=== PATIENT | female | born 1945 | race Caucasian/White ===

== ENCOUNTER → 2024-01-12 14:51 | Outpatient (BNVA) | payer OTHER, MEDICARE, SELFPAY | PROVIDERS: PCP Nurse Practitioner Family; Visit Provider Nurse Practitioner Family | DX: I10 Essential (primary) hypertension (principal); E78.5 Hyperlipidemia, unspecified | CPT/HCPCS: 80053; 80061 ==

== ENCOUNTER 2024-01-27 14:33 | Outpatient (CLI) | payer MEDICARE, OTHER, SELFPAY ==
--- NOTE | 2024-01-27 14:45 | CT_ITS ---
WS: [id number] LDCT LUNG CANCER SCREENING HISTORY: F17.200 - Nicotine dependence, unspecified, uncomplicated TECHNIQUE: Axial imaging performed from the apices to 1 cm below the costophrenic angles. Coronal and sagittal reformats are submitted with axial MIP series. All CT scans at [facility] use at least one of these dose optimization techniques: automated exposure control; mA and/or kV adjustment per patient size (includes targeted exams where dose is matched to clinical indication); or iterativ e reconstruction. DLP: 79.70 mGy.cm DIvol: Mean CTDIvol: 1.50 (mGy) COMPARISON: None available. Diagnostic quality: Satisfactory Lungs: Linear areas of atelectasis. Moderate chronic emphysema. No pulmonary mass or nodule. Mild foc al bronchiectasis central RIGHT lung. Bronchiectasis extends into the RIGHT lower and RIGHT middle lo bes. No endobronchial lesions. Heart: Normal size heart with no pericardial effusion.. Other findings: Mild atherosclerosis aorta. Normal size pulmonary artery. Small hiatal hernia. CT/CT lung screening [id number] IMPRESSION: LUNG-RADS: 1-Negative FOLLOW UP: 12 Month: Continue annual screening with LDCT OTHER FINDINGS (S MODIFIER): None.
== END 2024-01-27 14:34 | disposition home or self-care (01) ==
LOC: RAD 14:36
PROVIDERS: PCP Nurse Practitioner Family; Visit Provider Nurse Practitioner Family
DX: Z12.2 Encounter for screening for malignant neoplasm of respiratory organs (principal); F17.200 Nicotine dependence, unspecified, uncomplicated; J98.11 Atelectasis; J43.9 Emphysema, unspecified; J47.9 Bronchiectasis, uncomplicated
CPT/HCPCS: 71271

== ENCOUNTER 2024-02-18 12:08 | Outpatient (CLI) | payer MEDICARE, OTHER, SELFPAY ==
--- NOTE | 2024-02-18 12:15 | US_ITS ---
WS: [id number] ULTRASOUND SOFT TISSUES RIGHT lateral neck. HISTORY: R22.1 - Localized swelling, mass and lump, neck COMPARISON: None available. TECHNIQUE: 2-D and color Doppler imaging is submitted. Ultrasound is directed over the RIGHT lateral neck by the patient to the area of interest. There is a complex cystic mass without increased vascularity. This is a lobulated cystic mass with a few low-le tawny echoes. The entire complex measures 1.3 x 1.6 x 2.1 cm. US/US soft tissue head neck [id number] IMPRESSION: 1. Very nonspecific complex cystic mass along the RIGHT neck. This needs to be further evaluated. Recommend neck CT with IV contrast. This may be an abnormal lymph node or thyroglossal duct cyst or thrombosed vessel.
== END 2024-02-18 12:09 | disposition home or self-care (01) ==
LOC: RAD 12:09
PROVIDERS: PCP Nurse Practitioner Family; Visit Provider Nurse Practitioner Family
DX: R22.1 Localized swelling, mass and lump, neck (principal)
CPT/HCPCS: 76536

== ENCOUNTER 2024-02-24 15:41 | Outpatient (CLI) | payer MEDICARE, OTHER, SELFPAY ==
[2024-02-24] MEDS: iohexol 350 mg/mL 500 mL Btl (per mL) IV (16:20)
--- NOTE | 2024-02-24 16:30 | CTR_ITS ---
PROCEDURE INFORMATION: Exam: CT Neck With Contrast Exam date and time: 02/24/2024 4:05 PM Age: 78 years old Clinical indication: Mass, lump, or swelling in neck; Right; Patient HX: RT side of neck lump/bb placed x 3-4 weeks; Additional info: R22.1 - localized swelling, mass and lump, neck TECHNIQUE: Imaging protocol: Computed tomography of the neck with contrast. Radiation optimization: All CT scans at this facility use at least one of these dose optimization techniques: automated exposure control; mA and/or kV adjustment per patient size (includes targeted exams where dose is matched to clinical indication); or iterative reconstruction. Contrast material: OMNIPAQUE 350; Contrast volume: 100 ml; Contrast route: INTRAVENOUS (IV); COMPARISON: US soft tissue head neck [id number] 02/18/2024 12:18 PM RADIATION DOSE METRICS: Total DLP (mGy-cm): 170.95 FINDINGS: Salivary glands: Overall salivary glands are atrophic with fatty replacement. No salivary gland mass. Pharynx: Unremarkable. No significant tonsillar enlargement. Prevertebral and retropharyngeal spaces: Unremarkable. Larynx: Unremarkable. Epiglottis is normal. Thyroid: Normal. No enlarged or calcified nodules. Trachea: Visualized trachea is unremarkable. Lungs: Unremarkable as visualized. Lymph nodes: Rounded node with central low density is seen in the right posterior triangle at the level of the hyoid (Level IIB) which measures 2.4 x 1.6 x 1.3 cm. Several smaller nodes are seen just superior and inferior to this node. There is also a mildly enlarged right internal jugular chain node (Level IIA), measuring up to 1.2 cm. Bones/joints: Mild diffuse cervical spondylosis. Soft tissues: Unremarkable. No significant soft tissue swelling. Other findings: Emphysema. . CT/CT neck w con* [id number] IMPRESSION: 1. Right-sided lymphadenopathy most prominently Level IIB. The largest node has a central hypodensity. Consider reactive versus neoplastic lymphadenopathy. Image guided biopsy would be straight forward in this patient. No primary lesion seen on this exam. 2. Salivary gland atrophy. This may represent a late stage of Sjogren syndrome or other autoimmune disorder.
== END 2024-02-24 15:42 | disposition home or self-care (01) ==
LOC: RAD 15:42
PROVIDERS: PCP Nurse Practitioner Family; Visit Provider Nurse Practitioner Family
DX: R59.0 Localized enlarged lymph nodes (principal); K11.0 Atrophy of salivary gland
CPT/HCPCS: 70491

== ENCOUNTER 2024-05-02 13:35 | Oncology outpatient (recurring) (ONCR) | payer MEDICARE, OTHER, SELFPAY ==
[2024-05-02 15:44] LABS: Basophils % 0.6 %; Eosinophils # 0.1 10^3/uL (0.0-0.8); Eosinophils % 2.1 %; Lymphocytes # 1.3 10^3/uL (0.8-4.8); Lymphocytes % 25.3 %; Mean Corpuscular HGB Conc 33.1 g/dL (30-55); Mean Corpuscular Hemoglobin 31.7 pg (27-33); Mean Corpuscular Volume 95.9 fl (85-98); Mean Platelet Volume 10.7 fL (7.4-10.4); Monocytes # 0.4 10^3/uL (0.2-0.9); Neutrophils # 3.36 10^3/uL (1.8-7.7); Neutrophils % 63.8 %; Nucleated Red Blood Cells % 0 %; Platelet Count 243 10^3/cmm (157-399); Red Blood Count 4.38 10^6/uL (3.85-5.65); Red Cell Distribution Width 12.9 % (12.1-15.1); White Blood Count 5.26 10^3/uL (3.29-11.43)
[2024-05-02 15:51] LABS: Alanine Aminotransferase 16 U/L (0-33); Alkaline Phosphatase 136 U/L (35-105); Anion Gap 13.8 (5-19); Aspartate Amino Transferase 22 U/L (0-32); Blood Urea Nitrogen 13 mg/dL (8-23); Calcium 9.2 mg/dL (8.5-10.5); Carbon Dioxide 29 mmol/L (22-29); Chloride 96 mmol/L (98-107); Creatinine Clr Calc Pharmacy 64.9615; Globulin 3.5 g/dL (1.3-4.6); Glucose 90 mg/dL (65-115); Lactate Dehydrogenase 196 U/L (135-214); Osmolality Calculated 280 mOsm/kg (285-295); Potassium 3.8 mmol/L (3.5-5.1); Sodium 135 mmol/L (136-145); Total Bilirubin 0.7 mg/dL (0.15-1.2); Total Protein 7.5 g/dL (6.6-8.7)
[2024-05-02 16:20] LABS: Hepatitis A Antibody IgM Non-Reactive (Nonreactive); Hepatitis B Core AB, Total Non-Reactive (Nonreactive); Hepatitis B Surface AB 12.4 (11.5-1000); Hepatitis B Surface Antigen Non-Reactive (Nonreactive); Hepatitis C Virus Antibody Non-Reactive (Nonreactive)
[2024-05-03 11:40] LABS: Hepatitis A Antibody Total REACTIVE (NON-REACTIVE)
[2024-05-03 15:19] LABS: Hepatitis B Virus DNA NOT DETECTED (NOT DETECTED); Hepatitis B Virus DNA PCR NOT DETECTED Log IU/mL (NOT DETECTED)
== END 2024-05-27 23:59 | disposition home or self-care (01) ==
PROVIDERS: PCP Nurse Practitioner Family; Visit Provider Internal Medicine Medical Oncology
DX: C83.31 Diffuse large B-cell lymphoma, lymph nodes of head, face, and neck (principal); Z87.891 Personal history of nicotine dependence
CPT/HCPCS: 36415; 80053; 83615; 85025; 86705; 86706; 86708; 86709; 86803; 87340; 87517; 99205

== ENCOUNTER → 2024-05-09 15:29 | Outpatient (BNVA) | payer MEDICARE, OTHER, SELFPAY | PROVIDERS: PCP Nurse Practitioner Family; Visit Provider Surgery | DX: C83.30 Diffuse large B-cell lymphoma, unspecified site (principal) | CPT/HCPCS: 99204 ==

== ENCOUNTER 2024-05-17 06:34 | Day surgery (SDC) | payer MEDICARE, OTHER, SELFPAY ==
[2024-05-17] VITALS (7 sets, daily range): BP systolic 99–148; BP diastolic 50–82; PULSE 62–70; RESP 12–18; TEMP 36.1–36.4; O2SAT 93–98; BMI 29.0
--- NOTE | 2024-05-17 06:48 | SC_ITS ---
WS: [id number] Exam: C-arm FL for CVA [id number] Date/Time of Exam: 05/17/2024 6:48 AM Reason For Exam: Mediport placement Single AP C arm image of the upper LEFT chest is submitted. A LEFT subclavian port has been placed and appears to end in the lower one third of the SVC. No other significant finding.
--- NOTE | 2024-05-17 06:48 | XR_ITS ---
WS: [email or web address] Exam: XR chest 1V portable [id number] Date/Time of Exam: 05/17/2024 9:05 AM Reason For Exam: Postop Mediport placement No priors. LEFT subclavian MediPort has been placed and ends in the lower one third of the SVC in good position. The lungs are fully inflated. No infiltrates or pleural effusions. Normal cardiomediastinal silhouette. Normal bony elements. XR/XR chest 1V portable [id number] IMPRESSION: 1. LEFT subclavian port ending in the lower one third of the SVC. No acute card iopulmonary finding.
--- NOTE | 2024-05-17 07:09 | W.PM.OPSUD ---
Surgery/Procedure H&P Update DATE OF PROCEDURE: May 17, 2024 DATE H&P PERFORMED: 05/09/24 H&P UPDATE INFORMATION: I have reviewed H&P completed within last 30 days, I have examined patient prior to procedure and No changes to prior documentation PLANNED PROCEDURE: Operation Date: 05/17/24 08:30 Proposed Procedures p Portacath Placement 25170, C83.30(Not Applicable) - Feliciano Hoffman DO
[2024-05-17] MEDS: sodium chloride 0.9% 1,000 ML 30 ML IV (07:15)
--- NOTE | 2024-05-17 07:46 | ANES.PREANE2 ---
Pre-Anesthetic Assessment Height/Weight: Height 5 ft 6 in Weight 180 lb Temp Pulse Resp BP Pulse Ox O2 Del Method 97.6 F 62 18 148/82 97 Room Air 05/17/24 07:42 05/17/24 07:42 05/17/24 07:42 05/17/24 07:42 05/17/24 07:42 05/17/24 07:42 Preop Diagnosis: B-cell lymphoma Operation Date: 05/17/24 08:30 Proposed Procedures p Portacath Placement 41352, C83.30(Not Applicable) - Feliciano Hoffman, DO Was Beta Laz taken within 24 hours: N/A Was Clonidine taken within 24 hours: N/A Last intake: Intake Last Liquid Date 05/16/24 Last Liquid Time 22:00 Last Solid Date 05/16/24 Last Solid Time 22:00 Social No alcohol and No tobacco Quit smoking over 10 years ago Exam alert, oriented x 3, clear to auscultation bilaterally and regular rate & rhythm Airway Submandibular: within normal limits Cervical ROM: within normal limits Mallampati: Class III Dentition: full Anesthetic Plan ASA status: 3 Anesthesia: MAC Other: No prior issues with anesthesia NPO since yesterday evening History of hypertension on hydrochlorothiazide Patient has B-cell lymphoma, enlarged lymph nodes on right side of neck. These do not hinder swallowing or breathing Labs reviewed acceptable for procedure Patient is able to perform ADLs Plan for MAC anesthetic Medications/Allergies Home Medications ?Medication ?Instructions ?Recorded ?Confirmed ?Last Taken ?Type amitriptyline 25 mg tablet 25 mg PO DAILY #90 tabs 01/12/24 05/16/24 05/16/24 Rx atorvastatin 20 mg tablet 20 mg PO DAILY #90 tabs 01/12/24 05/16/24 05/16/24 Rx bisoprolol fumarate 10 mg tablet 10 mg PO DAILY #90 tabs 01/12/24 05/16/24 05/16/24 Rx hydrochlorothiazide 25 mg tablet 25 mg PO DAILY #90 tabs 01/12/24 05/16/24 05/16/24 Rx Allergies Allergy/AdvReac Type Severity Reaction Status Date / Time azithromycin Allergy Unknown Verified 05/09/24 15:37 Opioids - Morphine Analogues Allergy Unknown Verified 05/09/24 15:37 Current Medications Generic Name Dose Route Start Last Admin Trade Name Freq PRN Reason Stop Dose Admin Sodium Chloride 1,000 mls @ 30 mls/hr 05/17/24 07:15 05/17/24 07:15 Sodium Chloride 0.9% IV 05/18/24 07:14 30 mls/hr .Q24H NEISHA Administration PFSH Anesthesia Medical History Insomnia Hypertension Hyperlipidemia Surgical History History of appendectomy History of tubal ligation Family History Mother , at age 87 Hypertension Congestive heart failure (CHF) Father , at age 75 Hypertension Congestive heart failure (CHF) Social History Smoking and tobacco/nicotine status: former use of tobacco/nicotine (stopped at age 64) Quit status (tobacco/nicotine): has quit using Year quit tobacco: 13 years ago Alcohol intake: never Substance/Drug Use: never Adopted: No Caregiver/support person: No Lives independently: No Household members: spouse Marital status: service: No Current occupational status: retired Sexually active: Yes Do you think of yourself as: Straight/Heterosexual Current gender identity: Female Data Anesthesia Cardiac Studies: No Data to Display
[2024-05-17] MEDS: ceFAZolin 2,000 mg SDV 2000 MG IVP (08:25)
[2024-05-17] MEDS: lidocaine-epi 2% PF 1:200,000 20 mL SDV 10 ML XX (08:43)
[2024-05-17] MEDS: heparin, porcine 1,000 unit/mL INJ 10 mL 10000 UNIT INJECTION (08:44)
--- NOTE | 2024-05-17 09:10 | P.OP_ITS ---
Operative Report Date of procedure: May 17, 2024 Surgeon: Feliciano Hoffman DO Brief History: This a very pleasant 79-year-old female who was diagnosed with diffuse large B- cell lymphoma. Oncology requested Mediport placement for chemotherapy access. The risks and benefits were explained and documented. Procedure: Pre-op diagnosis: Post-op diagnosis: same Procedure done: Mediport placement Intraoperative interpretation of fluoroscopy Implants: PowerPort Specimens removed/disposition: None Surgeon: Feliciano Hoffman DO Anesthesia: MAC and Local Estimated blood loss (mL): 5 Complications: None apparent Procedure: The patient was taken to the operating room and placed supine on the operating room table. All bony prominences were padded. She was given IV sedation and monitored throughout the case by the anesthesia personnel. SCDs were placed and turned on. The arms were tucked to the side. Patient received Ancef 2 g preoperatively IV. The bilateral chest wall was prepped and draped in usual sterile fashion using chlorhexidine base prep. Sterile drapes were applied. We did procedure pause prior to beginning. An 18 gauge needle was placed in the left subclavian vein. Dark, nonpulsatile blood was aspirated. A guidewire was placed through the needle centrally toward the atrial/vena caval junction. Fluoroscopy visualized good placement. The needle was removed and the guidewire was clipped to the drape with a hemostat. Further local anesthetic was infiltrated in the soft tissues of the left chest wall and a #15 blade was used to make a horizontal skin incision. A subcutaneous Mediport pocket was created using Bovie cautery, dissecting down through the skin and subcutaneous tissues. Meticulous hemostasis was achieved. The Mediport was sutured in position using 3-0 vicryl suture x2 stitches. A #15 blade was used to make a small skin loyda around the guidewire insertion area. The Mediport tubing was tunneled through the subcutaneous tissues up to the needle insertion location. A dilator with a peel-away sheath was placed over the guidewire and placed centrally. After measuring the Mediport tubing was cut to length so that the tip would end at the atrial/vena caval junction. The inner cannula and the guidewire were removed, leaving the dilator sheath in place. The Mediport was flushed. The tip of the catheter was inserted through the peel-away sheath and the peel-away sheath removed in the standard fashion. The Mediport was accessed with a straight Noyola needle and dark, nonpulsatile blood was aspirated and flushed using heparinized saline to hep-lock the Mediport. Final fluoroscopy visualization showed no kink in the catheter and the tip of the Mediport tubing near the atrial/vena caval junction. There is no obvious pneumothorax. Both skin incisions were thoroughly irrigated and suctioned dry. Meticulous hemostasis noted. The dermis was approximated with 3-0 Vicryl in an interrupted fashion. Skin was closed with Dermabond. Patient was awakened from anesthesia and transferred via her cart to the recovery room in stable condition. All needle, sponge, and instrument counts were correct per the operating personnel x2 counts.
--- NOTE | 2024-05-17 09:55 | ANE.PACU2 ---
Inpatient post-anesthesia follow up: Airway intact: Yes Vital signs: Temperature 97.0 F Pulse Rate 70 Respiratory Rate 18 Blood Pressure 117/80 Pulse Oximetry 93 Oxygen Delivery Me thod Room Air Oxygen Flow Rate Fraction of Inspir ed Oxygen Hydration adequate: Yes Nausea and vomiting: No Pain level: 1 Mental status: Baseline
== END 2024-05-17 09:55 | disposition home or self-care (01) ==
PROVIDERS: PCP Nurse Practitioner Family; Visit Provider Surgery
DX: C83.30 Diffuse large B-cell lymphoma, unspecified site (principal); I10 Essential (primary) hypertension; E78.5 Hyperlipidemia, unspecified; Z79.899 Other long term (current) drug therapy; Z87.891 Personal history of nicotine dependence
CPT/HCPCS: 71045; 77001; C1788; J0690; J1644; J2704; J3010; J7030

== ENCOUNTER 2024-05-25 08:10 | Outpatient (CLI) | payer MEDICARE, OTHER, SELFPAY ==
--- NOTE | 2024-05-25 08:30 | USCV_ITS ---
Yael Lias Age: 79 Gender: F : 1945 Exam Date: 05/25/2024 08:18 Ordering Phys: Jim Kiran MD Technologist: Exam Location: [facility] [place] Indication: Lymphoma BP: / HR: Rhythm: Sinus Technical Quality: Adequate MEASUREMENTS (Male / Female) Normal Values FINDINGS Left Ventricle Normal left ventricular size, systolic function and wall thickness, with no regional wall motion abnormalities. Left ventricular ejection fraction is estimated at 60 %. Grade I/IV diastolic dysfunction (abnormal relaxation filling pattern), normal to mildly elevated filling pressures. Right Ventricle The right ventricle is normal in size and function. Right Atrium The right atrium is normal in size. Left Atrium The left atrium is normal in size. Mitral Valve Mildly thickened mitral valve. No mitral valve stenosis. Mild- moderate mitral valve regurgitation. Aortic Valve Mild aortic valve calcification. No aortic valve stenosis. Trace aortic valve regurgitation. Tricuspid Valve Structurally normal tricuspid valve without significant stenosis or regurgitation. Pulmonary artery systolic pressure is normal. Pulmonic Valve Structurally normal pulmonic valve without significant stenosis. There is no pulmonic regurgitation. Pericardium Normal pericardium without effusion. Aorta Normal ascending aorta dimension. IVC The inferior vena cava appears normal. CONCLUSIONS Normal left ventricular size, systolic function and wall thickness, with no regional wall motion abnormalities. Left ventricular ejection fraction is estimated at 60 %. Grade I/IV diastolic dysfunction (abnormal relaxation filling pattern), normal to mildly elevated filling pressures. Mildly thickened mitral valve. No mitral valve stenosis. Mild- moderate mitral valve regurgitation. There is no pericardial effusion. Right atrial pressure is around 5 mm of mercury. Emily Mistry MD (Electronically Signed) Final Date: 14 June 2024 09:13 S
== END 2024-05-25 08:11 | disposition home or self-care (01) ==
PROVIDERS: PCP Nurse Practitioner Family; Visit Provider Internal Medicine Medical Oncology
DX: C83.30 Diffuse large B-cell lymphoma, unspecified site (principal); R93.1 Abnormal findings on diagnostic imaging of heart and coronary circulation; I34.0 Nonrheumatic mitral (valve) insufficiency; I35.8 Other nonrheumatic aortic valve disorders
CPT/HCPCS: 93306

== ENCOUNTER → 2024-05-30 09:38 | Outpatient (BNVA) | payer MEDICARE, OTHER, SELFPAY | PROVIDERS: PCP Nurse Practitioner Family; Visit Provider Surgery | DX: C83.30 Diffuse large B-cell lymphoma, unspecified site (principal); Z95.828 Presence of other vascular implants and grafts | CPT/HCPCS: 99214 ==

== ENCOUNTER 2024-06-27 07:30 | Oncology outpatient (recurring) (ONCR) | payer MEDICARE, OTHER, SELFPAY ==
[2024-06-27] VITALS (14 sets, daily range): BP systolic 94–125; BP diastolic 49–79; PULSE 61–78; RESP 16–18; TEMP 35.8–36.6; O2SAT 89–99
[2024-06-27 07:37] LABS: Basophils % 0.5 %; Eosinophils # 0.2 10^3/uL (0.0-0.8); Eosinophils % 2.5 %; Hematocrit 39.8 % (36-47); Lymphocytes # 1.3 10^3/uL (0.8-4.8); Mean Corpuscular HGB Conc 33.4 g/dL (30-55); Mean Corpuscular Hemoglobin 31.8 pg (27-33); Mean Corpuscular Volume 95.2 fl (85-98); Mean Platelet Volume 10.4 fL (7.4-10.4); Monocytes # 0.6 10^3/uL (0.2-0.9); Monocytes % 10.7 %; Neutrophils # 3.88 10^3/uL (1.8-7.7); Neutrophils % 65.1 %; Nucleated Red Blood Cells % 0 %; Platelet Count 229 10^3/cmm (157-399); Red Blood Count 4.18 10^6/uL (3.85-5.65); Red Cell Distribution Width 12.9 % (12.1-15.1); White Blood Count 5.96 10^3/uL (3.29-11.43)
[2024-06-27 07:59] LABS: Alanine Aminotransferase 15 U/L (0-33); Alkaline Phosphatase 131 U/L (35-105); Anion Gap 13.5 (5-19); Aspartate Amino Transferase 17 U/L (0-32); Blood Urea Nitrogen 12 mg/dL (8-23); Calcium 9.4 mg/dL (8.5-10.5); Carbon Dioxide 28 mmol/L (22-29); Chloride 102 mmol/L (98-107); Globulin 3.3 g/dL (1.3-4.6); Glucose 102 mg/dL (65-115); Lactate Dehydrogenase 188 U/L (135-214); Osmolality Calculated 288 mOsm/kg (285-295); Potassium 4.5 mmol/L (3.5-5.1); Sodium 139 mmol/L (136-145); Total Bilirubin 0.7 mg/dL (0.15-1.2); Total Protein 7.3 g/dL (6.6-8.7)
[2024-06-27] MEDS: sodium chloride 0.9% 250 ML 75 ML IV (10:06)
[2024-06-27] MEDS: palonosetron 0.25 mg/5 mL SDV IVP (10:07)
[2024-06-27] MEDS: OLANZapine 5 mg TABLET PO (10:07)
[2024-06-27] MEDS: diphenhydrAMINE 50 mg/mL SDV 1mL 25 MG IVP (10:09)
[2024-06-27] MEDS: famotidine 20 mg/2 mL INJ IVP (10:11)
[2024-06-27] MEDS: aprepitant 130 mg/18 ml SDV IVP (10:13)
[2024-06-27] MEDS: dexamethasone 4 mg/mL INJ 12 MG IVP (10:19)
[2024-06-27] MEDS: methylPREDNISolone sod succ 125 mg/2 mL INJ 60 MG IVP (11:05)
[2024-06-27] MEDS: ipratropium-albuterol 3 mL Neb INHALATION (11:05)
[2024-06-27] MEDS: sodium chloride 0.9% 1,000 ML 500 ML IV (11:21)
[2024-06-27] MEDS: DOXOrubicin 2 mg/ml MDV 94 MG IVP (18:18)
[2024-06-27] MEDS: pegfilgrastim 6 mg/0.6 mL Kit (onpro) SUBCUT (18:49)
== END 2024-06-27 23:59 | disposition home or self-care (01) ==
PROVIDERS: Nurse Practitioner Family; PCP Nurse Practitioner Family; Visit Provider Internal Medicine Medical Oncology
DX: Z53.9 Procedure and treatment not carried out, unspecified reason; Z51.11 Encounter for antineoplastic chemotherapy; C83.31 Diffuse large B-cell lymphoma, lymph nodes of head, face, and neck; Z79.899 Other long term (current) drug therapy; T45.1X5A Adverse effect of antineoplastic and immunosuppressive drugs, initial encounter; Z79.52 Long term (current) use of systemic steroids
CPT/HCPCS: 80053; 83615; 85025; 96360; 96361; 96366; 96367; 96372; 96375; 96401; 96409; 96413; 96415; 96417; 99214; 99215; J0185; J1100; J1200; J2469; J2506; J2919; J3490; J7030; J7040; J7050; J9000; J9075; J9309; J9999; Q5119

== ENCOUNTER 2024-06-29 09:16 | Emergency (ER) | payer MEDICARE, OTHER, SELFPAY ==
[2024-06-29 09:26] VITALS: BP 101/55; PULSE 60; RESP 20; TEMP 36.3; O2SAT 91
--- NOTE | 2024-06-29 09:47 | XR_ITS ---
WS: [id number] XR chest 1V portable [id number] REASON FOR EXAM: Shortness of breath FINDINGS: Chemotherapy infusion port over the left chest which is accessed. Trans left subclavian infusion catheter with the tip in the SVC. There is moderate tortuosity and ectasia of the thoracic aorta. The heart size is at the upper limits of normal. Compared to the previous examination of 05/17/2024, there are interstitial reticular and linear opacities in the right lower lung with accentuation of the minor fissure. Moderate degenerative spondylosis in the mid and lower thoracic spine. XR/XR chest 1V portable [id number] IMPRESSION: Abnormal chest. The findings suggest early congestive heart failure. Less likely pneumonitis.
--- NOTE | 2024-06-29 09:47 | ECG_ITS ---
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 Measurements Intervals Ferguson Rate: 64 P: 76 GA: 176 QRS: 88 QRSD: 94 T: 91 QT: 417 QTc: 432 Interpretive Statements SINUS RHYTHM LOW QRS VOLTAGE IN PRECORDIAL LEADS [QRS DEFLECTION < 1.0 mV IN CHEST LEADS] No previous ECG available for comparison Electronically Signed On 07-02-2024 18:24:16 CDT by Chidi Marsh M.D. [email or web address]
[2024-06-29 10:06] LABS: Hematocrit 34.1 % (36-47); Mean Corpuscular HGB Conc 32.8 g/dL (30-55); Mean Corpuscular Hemoglobin 31.4 pg (27-33); Mean Corpuscular Volume 95.5 fl (85-98); Mean Platelet Volume 10.7 fL (7.4-10.4); Platelet Count 218 10^3/cmm (157-399); Red Blood Count 3.57 10^6/uL (3.85-5.65); Red Cell Distribution Width 13.1 % (12.1-15.1); White Blood Count 29.88 10^3/uL (3.29-11.43)
--- NOTE | 2024-06-29 10:07 | CT_ITS ---
WS: [id number] CT CHEST ANGIOGRAPHY WITH REFORMATS HISTORY: sob TECHNIQUE: Contiguous axial images are obtained through the chest during arterial injection of intravenous contrast. Images are reconstructed to evaluate the pulmonary arteries. MIP imaging also reviewed. All CT scans at [facility] use at least one of these dose optimization techniques: automated exposure control; mA and/or kV adjustment per patient size (includes targeted exams where dose is matched to clinical indication); or iterative reconstruction. CONTRAST: Omnipaque 350; 100 mL IV. DLP: 339.56 mGy.cm COMPARISON: Lung screening 01/27/2024 Good opacification of the pulmonary arteries. No filling defects or pulmonary embolism is identified. Pulmonary artery size is normal. No RIGHT heart strain. Very slight LEFT heart enlargement. Mild ectasia and atherosclerosis thoracic aorta. No mediastinal or hilar adenopathy. No pericardial or pleural effusions. Advanced centrilobular emphysema. New heterogeneous attenuation noted throughout both lungs. Areas of groundglass attenuation and lucency, mosaic attenuation. Bilateral lower lobe atelectasis. Slightly greater atelectasis at the LEFT lung base. LEFT subclavian Mediport. Mild increase in thoracic kyphosis. No destructive bone lesions are identified. CT/CT angio chest PE protcl [id number] IMPRESSION: 1. No pulmonary embolism. 2. New mosaic attenuation throughout both lungs since 01/27/2024. Differential includes hypersensitivity pneumonitis, heart failure, asthma and viral pneumon ia. Pulmonary embolism may produce a similar pattern. 3. No pulmonary mass. 4. No pleural effusion.
--- NOTE | 2024-06-29 10:17 | W.ED.SOB ---
HPI - SOB/Dyspnea General: Chief Complaint: Shortness of Breath/Dyspnea Stated Complaint: SOB, swelling in legs, fulid build up Time Seen by Provider: 06/29/24 09:54 Source: patient Mode of arrival: ambulatory Limitations: no limitations History of Present Illness: HPI Narrative: 79-year-old female who has a history of lymphoma just started her first chemo treatment on Thursday she states that since then she is felt weak and fatigued. She states she has had some increasing shortness of breath she also had some leg swelling. She denies any fever denies any chest pain. Denies any worse improving factors. Associated symptoms: Deny abdominal pain, chest pain, fever(s), nausea or vomiting Related Data Home Medications ?Medication ?Instructions ?Recorded ?Confirmed ascorbic acid (vitamin C) 1,000 mg 1 g PO DAILY 06/29/24 06/29/24 tablet (Vitamin C) cholecalciferol (vitamin D3) 125 125 mcg PO DAILY 06/29/24 06/29/24 mcg (5,000 unit) tablet (Vitamin D3) flaxseed oil 1,000 mg capsule 1,000 mg PO DAILY 06/29/24 06/29/24 magnesium 250 mg tablet 250 mg PO DAILY 06/29/24 06/29/24 polyethylene glycol 3350 17 4 g PO DAILY constipation 06/29/24 06/29/24 gram/dose oral powder (Miralax) vitamin B complex 0.5 tab PO DAILY 06/29/24 06/29/24 Previous Rx's ?Medication ?Instructions ?Recorded amitriptyline 25 mg tablet 25 mg PO DAILY #90 tabs 01/12/24 atorvastatin 20 mg tablet 20 mg PO DAILY #90 tabs 01/12/24 bisoprolol fumarate 10 mg tablet 10 mg PO DAILY #90 tabs 01/12/24 hydrochlorothiazide 25 mg tablet 25 mg PO DAILY #90 tabs 01/12/24 docusate sodium 100 mg capsule 100 mg PO BID #14 caps 05/17/24 (Colace) ondansetron 8 mg disintegrating 8 mg PO Q8H PRN nausea and 05/17/24 tablet vomiting #10 tabs allopurinol 300 mg tablet 300 mg PO DAILY #30 tabs 06/15/24 fluconazole 100 mg tablet 100 mg PO DAILY fungal infection 06/15/24 prevention #90 tabs lorazepam 1 mg tablet 0.5 - 1 mg (0.5 - 1 x 1 mg) PO Q6H 06/15/24 PRN severe nausea #30 tabs ondansetron HCl 4 mg tablet 4 mg PO Q6H PRN nausea and 06/15/24 vomiting #30 tabs prochlorperazine maleate 10 mg 10 mg PO Q4H PRN mild nausea #30 06/15/24 tablet (Compazine) tabs sulfamethoxazole 800 1 tab PO MOWEFR infection 06/15/24 mg-trimethoprim 160 mg tablet prevention #24 tabs (Bactrim DS) valacyclovir 500 mg tablet 500 mg PO BID #60 tabs 06/15/24 lidocaine-prilocaine 2.5 %-2.5 % 1 applic topical .COMPLEX #30 grams 06/16/24 topical cream doxycycline hyclate 100 mg tablet 100 mg PO BID 7 days #14 tabs 06/29/24 furosemide 40 mg tablet (Lasix) 40 mg PO DAILY #30 tabs 06/29/24 Allergies Allergy/AdvReac Type Severity Reaction Status Date / Time acetaminophen Allergy Unknown Verified 06/29/24 09:31 azithromycin Allergy Unknown Verified 06/27/24 07:55 Opioids - Morphine Analogues Allergy Unknown Verified 06/27/24 07:55 Review of Systems Const: Denies: fever(s), chills, body aches or change in appetite ENMT: Denies: throat pain or dental pain Card: Denies: chest pain Resp: Reports: dyspnea GI: Denies: abdominal pain, nausea, vomiting or diarrhea Musc: Reports: extremity swelling; Denies: neck pain or back pain Skin/Breast: Denies: rash Neuro: Denies: headache(s) PFSH ED PFSH: Medical History Insomnia Hypertension Hyperlipidemia Surgical History History of appendectomy History of tubal ligation Family History Mother , at age 87 Hypertension Congestive heart failure (CHF) Father , at age 75 Hypertension Congestive heart failure (CHF) Social History Smoking and tobacco/nicotine status: former use of tobacco/nicotine (stopped at age 64) Quit status (tobacco/nicotine): has quit using Year quit tobacco: 13 years ago Alcohol intake: never Substance/Drug Use: never Adopted: No Caregiver/support person: No Lives independently: No Household members: spouse Marital status: service: No Current occupational status: retired Sexually active: Yes Do you think of yourself as: Straight/Heterosexual Current gender identity: Female Physical Exam Const: COMMON NORMALS: patient oriented x3 HENMT: COMMON NORMALS: normocephalic and atraumatic HEAD & SCALP: normocephalic and atraumatic Eye: COMMON NORMALS: Equal, round and reactive pupils present and EOMs intact bilaterally PUPIL: Yes Equal, round and reactive pupils present Neck/C-Spine: COMMON NORMALS: full ROM and supple Chest: COMMONS NORMALS: normal inspection of the chest Resp: COMMON NORMALS: normal respiratory effort, No retractions, No use of accessory muscles and clear to auscultation bilaterally AUSCULTATION: clear to auscultation bilaterally Cardio: COMMON NORMALS: regular rate, regular rhythm and No murmurs present (Cardio) RATE: regular rate RHYTHM: regular rhythm GI: COMMON NORMALS: Normal to inspection, nondistended, normoactive bowel sounds present, Soft to palpation, non-tender and no masses PALPATION: Yes Soft to palpation Extremity: COMMON NORMALS: full ROM NARRATIVE EXTREMITY EXAM: 2+ edema to lower extremities Neuro: COMMON NORMALS: patient oriented x3, moves all extremities and no focal motor deficits Psych: COMMON NORMALS: mental status grossly normal, Normal thought process present and cooperative THOUGHT PROCESS: Normal thought process present Skin: COMMON NORMALS: no rashes or lesions noted and no wounds GENERAL SKIN EXAM: no rashes or lesions noted Course Vital Signs: Vital signs: Vital Signs Temperature 97.4 F L 06/29/24 09:26 Pulse Rate 60 06/29/24 09:26 Respiratory Rate 20 H 06/29/24 09:26 Blood Pressure 101/55 06/29/24 09:26 Pulse Oximetry 91 06/29/24 09:26 Oxygen Delivery Me thod Room Air 06/29/24 09:26 MDM - SOB/Dyspnea Medical Decision Making Patient presents with lower extremity muscle some dyspnea does have an elevated BNP little bit of fluid overload x-ray showed pneumonitis versus pulmonary edema will start on antibiotics she has not had a fever will start on Lasix as well I did offer her admission she states she wants to go home she is follow-up with her oncologist return if worsening she understands agrees to plan. Medical Records I reviewed the patient's medical records. Lab Data I reviewed the patient's lab results. 06/29/24 09:55 06/29/24 09:55 Labs/Radiology: Radiology Impressions Chest X-Ray 06/29/24 09:47 IMPRESSION: Abnormal chest. The findings suggest early congestive heart failure. Less likely pneumonitis. Chest CTA 06/29/24 10:07 IMPRESSION: 1. No pulmonary embolism. 2. New mosaic attenuation throughout both lungs since 01/27/2024. Differential includes hypersensitivity pneumonitis, heart failure, asthma and viral pneumonia. Pulmonary embolism may produce a similar pattern. 3. No pulmonary mass. 4. No pleural effusion. Laboratory Results WBC 29.88 10^3/uL (3.29-11.43) H 06/29/24 09:55 RBC 3.57 10^6/uL (3.85-5.65) L 06/29/24 09:55 Hgb 11.20 g/dL (11.27-16.99) L 06/29/24 09:55 Hct 34.1 % (36-47) L 06/29/24 09:55 MCV 95.5 fl (85-98) 06/29/24 09:55 MCH 31.4 pg (27-33) 06/29/24 09:55 MCHC 32.8 g/dL (30-55) 06/29/24 09:55 RDW 13.1 % (12.1-15.1) 06/29/24 09:55 Plt Count 218 10^3/cmm (157-399) 06/29/24 09:55 MPV 10.7 fL (7.4-10.4) H 06/29/24 09:55 Lymph % (Auto) Not Reportable 06/29/24 09:55 [place] % (Auto) Not Reportable 06/29/24 09:55 Lymph # (Auto) Not Reportable 06/29/24 09:55 [place] # (Auto) Not Reportable 06/29/24 09:55 Total Counted 100 (0-100) 06/29/24 09:55 Atypical Lymphs % 0.0 % (0-5) 06/29/24 09:55 Absolute Neutrophils 27.8 10^3/cmm (1.4-6.5) H 06/29/24 09:55 Segmented Neutrophils 80 % 06/29/24 09:55 Band Neutrophils 13.0 % 06/29/24 09:55 Absolute Lymphocytes 0.9 10^3/cmm (1.2-3.4) L 06/29/24 09:55 Lymphocytes (Manual) 3 % 06/29/24 09:55 Monocytes (Manual) 2.0 % 06/29/24 09:55 Absolute Monocytes 0.6 10^3/cmm (0.1-0.6) 06/29/24 09:55 Eosinophils (Manual) 0 % 06/29/24 09:55 Absolute Eosinophils 0.0 10^3/cmm (0.0-0.7) 06/29/24 09:55 Basophils (Manual) 0.0 % 06/29/24 09:55 Absolute Basophils 0.0 10^3/cmm (0.0-0.2) 06/29/24 09:55 Myelocytes 2.0 % 06/29/24 09:55 Platelet Estimate Normal (Normal) 06/29/24 09:55 Sodium 134 mmol/L (136-145) L 06/29/24 09:55 Potassium 4.1 mmol/L (3.5-5.1) 06/29/24 09:55 Chloride 100 mmol/L (98-107) 06/29/24 09:55 Carbon Dioxide 25 mmol/L (22-29) 06/29/24 09:55 Anion Gap 13.1 (5-19) 06/29/24 09:55 BUN 24 mg/dL (8-23) H 06/29/24 09:55 Creatinine 0.7 mg/dL (0.5-0.9) 06/29/24 09:55 GFR Calculation Not Reportable 06/29/24 09:55 Glucose 120 mg/dL (65-115) H 06/29/24 09:55 Calculated Osmolality 283 mOsm/kg (285-295) L 06/29/24 09:55 Calcium 8.7 mg/dL (8.5-10.5) 06/29/24 09:55 Magnesium 2.5 mg/dL (1.7-2.3) H 06/29/24 09:55 Total Bilirubin 0.3 mg/dL (0.15-1.2) 06/29/24 09:55 AST 43 U/L (0-32) H 06/29/24 09:55 ALT 32 U/L (0-33) 06/29/24 09:55 Alkaline Phosphatase 115 U/L (35-105) H 06/29/24 09:55 Troponin T Baseline 10 ng/L (0-10) 06/29/24 09:55 Troponin T 120 Minute 10.27 ng/L (0-10) H 06/29/24 11:47 Delta Troponin T 0.27 ABS# (0-10) 06/29/24 11:47 NT-Pro-B Natriuret Pep 2232 pg/mL (0-450) H 06/29/24 09:55 Total Protein 6.5 g/dL (6.6-8.7) L 06/29/24 09:55 Albumin 3.6 g/dL (3.5-5.2) 06/29/24 09:55 Globulin 2.9 g/dL (1.3-4.6) 06/29/24 09:55 All radiology interpretation(s) finalized by discharge EKG Data EKG 1: I personally reviewed and interpreted this EKG as follows: EKG Interpretation Date: 06/29/24 EKG interpretation time: 11:45 Interpretation: nsr hr [address] or t wave abnormalities qrs 94 qtc 424 Discharge Plan Discharge Patient Disposition: Home Clinical Impression: Bilateral edema of lower extremity, Dyspnea Condition: Stable Prescriptions: New furosemide [Lasix] 40 mg tablet 40 mg PO DAILY Qty: 30 0RF doxycycline hyclate 100 mg tablet 100 mg PO BID 7 Days Qty: 14 0RF No Action amitriptyline 25 mg tablet 25 mg PO DAILY Qty: 90 1RF atorvastatin 20 mg tablet 20 mg PO DAILY Qty: 90 1RF hydrochlorothiazide 25 mg tablet 25 mg PO DAILY Qty: 90 1RF bisoprolol fumarate 10 mg tablet 10 mg PO DAILY Qty: 90 1RF fluconazole 100 mg tablet 100 mg PO DAILY Qty: 90 2RF ondansetron HCl 4 mg tablet 4 mg PO Q6H PRN (Reason: nausea and vomiting) Qty: 30 3RF prochlorperazine maleate [Compazine] 10 mg tablet 10 mg PO Q4H PRN (Reason: mild nausea) Qty: 30 3RF valacyclovir 500 mg tablet 500 mg PO BID Qty: 60 5RF Rx Instructions: Continue 3 months post treatment for prevention of viral infection sulfamethoxazole-trimethoprim [Bactrim DS] 800-160 mg tablet 1 tab PO MOWEFR Qty: 24 5RF allopurinol 300 mg tablet 300 mg PO DAILY Qty: 30 3RF lorazepam 1 mg tablet 0.5 - 1 mg PO Q6H PRN (Reason: severe nausea) Qty: 30 3RF lidocaine-prilocaine 2.5-2.5 % cream 1 applic topical .COMPLEX Qty: 30 2RF Rx Instructions: Apply quarter-size amount to port site 30 minutes prior to access; cover with cling wrap docusate sodium [Colace] 100 mg capsule 100 mg PO BID Qty: 14 0RF ondansetron 8 mg tablet,disintegrating 8 mg PO Q8H PRN (Reason: nausea and vomiting) Qty: 10 0RF ascorbic acid (vitamin C) [Vitamin C] 1,000 mg Tablet 1 g PO DAILY flaxseed oil 1,000 mg Capsule 1,000 mg PO DAILY Rx Instructions: administer with a meal vitamin B complex [B Complex Vitamin] Tablet 0.5 tab PO DAILY magnesium 250 mg Tablet 250 mg PO DAILY polyethylene glycol 3350 [Miralax] 17 gram/dose Powder 4 g PO DAILY cholecalciferol (vitamin D3) [Vitamin D3] 125 mcg (5,000 unit) Tablet 125 mcg PO DAILY Discharge Orders: Discharge ED (Routine); Ordered 06/29/24 Ordered By: Lester Cantrell Referrals: Angelina Cota FNP [Primary Care Provider] - Discharge Diet: Advance as tolerated Discharge Activity: Resume usual activity Patient Instructions: Leg Edema (ED), Dyspnea (ED) Print Language: Comoran Coding Level of Care Code ED Supervisor Costuming for Osvaldo Pizarro
[2024-06-29 10:34] LABS: Troponin(5th) Baseline 10 ng/L (0-10)
[2024-06-29 10:43] LABS: Absolute Neutrophil 27.8 10^3/cmm (1.4-6.5); Absolute Segmented Neutrophil 23.9 10/cmm (1.6-7.1); Band Neutrophils Absolute 3.9 10^3/cmm (0.0-1.2); Eosinophils 0 %; Lymphocytes 3 %; Lymphocytes Absolute 0.9 10^3/cmm (1.2-3.4); Monocytes Absolute 0.6 10^3/cmm (0.1-0.6); Platelet Estimate Normal (Normal); Segmented Neutrophils 80 %; Slide Review Slide Review Perform; Total Cells Counted 100 (0-100)
[2024-06-29] MEDS: FUROsemide 10 mg/mL SDV 10mL 60 MG IVP (11:01)
[2024-06-29 11:04] LABS: Alanine Aminotransferase 32 U/L (0-33); Albumin Level 3.6 g/dL (3.5-5.2); Alkaline Phosphatase 115 U/L (35-105); Anion Gap 13.1 (5-19); Aspartate Amino Transferase 43 U/L (0-32); Blood Urea Nitrogen 24 mg/dL (8-23); Calcium 8.7 mg/dL (8.5-10.5); Carbon Dioxide 25 mmol/L (22-29); Chloride 100 mmol/L (98-107); Creatinine Clr Calc Pharmacy 63.0674; Globulin 2.9 g/dL (1.3-4.6); Glucose 120 mg/dL (65-115); Magnesium 2.5 mg/dL (1.7-2.3); NT Pro B Type Natriuretic Pept 2232 pg/mL (0-450); Osmolality Calculated 283 mOsm/kg (285-295); Potassium 4.1 mmol/L (3.5-5.1); Sodium 134 mmol/L (136-145); Total Bilirubin 0.3 mg/dL (0.15-1.2); Total Protein 6.5 g/dL (6.6-8.7)
[2024-06-29] MEDS: iohexol 350 mg/mL 500 mL Btl (per mL) IV (11:25)
--- NOTE | 2024-06-29 11:47 | ECG_ITS ---
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
[2024-06-29 12:11] LABS: Troponin 5 2HR 10.27 ng/L (0-10); Troponin 5 2HR Delta 0.27 ABS# (0-10)
[2024-06-29 13:10] VITALS: BP 119/60; PULSE 62; O2SAT 93
== END 2024-06-29 13:11 | disposition home or self-care (01) ==
PROVIDERS: Emergency Medicine; Emergency Provider Emergency Medicine; PCP Nurse Practitioner Family
DX: R60.0 Localized edema (principal); R06.00 Dyspnea, unspecified; Z87.891 Personal history of nicotine dependence; E78.5 Hyperlipidemia, unspecified; I10 Essential (primary) hypertension
CPT/HCPCS: 71045; 71275; 80053; 83735; 83880; 84484; 85007; 85025; 93005; 96374; 99285; J1938

== ENCOUNTER 2024-07-18 07:30 | Oncology outpatient (recurring) (ONCR) | payer MEDICARE, OTHER, SELFPAY ==
[2024-07-04] MEDS: alteplase 1 mg/mL SDV 2 mL 2 MG INTRACATH (11:51)
[2024-07-04 11:58] LABS: Eosinophils % 3.9 %; Hematocrit 38.9 % (36-47); Lymphocytes # 0.5 10^3/uL (0.8-4.8); Lymphocytes % 88.2 %; Mean Corpuscular HGB Conc 33.2 g/dL (30-55); Mean Corpuscular Hemoglobin 31.3 pg (27-33); Mean Corpuscular Volume 94.4 fl (85-98); Mean Platelet Volume 10.5 fL (7.4-10.4); Monocytes % 5.9 %; Nucleated Red Blood Cells % 0 %; Platelet Count 126 10^3/cmm (157-399); Red Blood Count 4.12 10^6/uL (3.85-5.65); Red Cell Distribution Width 12.7 % (12.1-15.1)
[2024-07-04 12:26] LABS: Slide Review Slide Review Perform; White Blood Count 0.51 10^3/uL (3.29-11.43)
[2024-07-04 12:30] LABS: Alanine Aminotransferase 22 U/L (0-33); Albumin Level 3.7 g/dL (3.5-5.2); Alkaline Phosphatase 108 U/L (35-105); Anion Gap 12.4 (5-19); Aspartate Amino Transferase 15 U/L (0-32); Blood Urea Nitrogen 17 mg/dL (8-23); Calcium 9.1 mg/dL (8.5-10.5); Carbon Dioxide 31 mmol/L (22-29); Chloride 97 mmol/L (98-107); Creatinine Clr Calc Pharmacy 61.0433; Globulin 2.7 g/dL (1.3-4.6); Glucose 105 mg/dL (65-115); Lactate Dehydrogenase 147 U/L (135-214); NT Pro B Type Natriuretic Pept 184 pg/mL (0-450); Osmolality Calculated 286 mOsm/kg (285-295); Potassium 3.4 mmol/L (3.5-5.1); Sodium 137 mmol/L (136-145); Total Bilirubin 1.4 mg/dL (0.15-1.2); Total Protein 6.4 g/dL (6.6-8.7)
[2024-07-07] MEDS: sodium chloride 0.9% 1,000 ML 999 ML IV (09:55)
[2024-07-07 10:02] LABS: Hematocrit 34.4 % (36-47); Mean Corpuscular HGB Conc 32.8 g/dL (30-55); Mean Corpuscular Hemoglobin 31.5 pg (27-33); Mean Corpuscular Volume 95.8 fl (85-98); Mean Platelet Volume 10.5 fL (7.4-10.4); Platelet Count 101 10^3/cmm (157-399); Red Blood Count 3.59 10^6/uL (3.85-5.65); Red Cell Distribution Width 12.8 % (12.1-15.1); White Blood Count 2.48 10^3/uL (3.29-11.43)
[2024-07-07 10:19] LABS: Alanine Aminotransferase 19 U/L (0-33); Albumin Level 3.5 g/dL (3.5-5.2); Alkaline Phosphatase 94 U/L (35-105); Anion Gap 13.3 (5-19); Aspartate Amino Transferase 14 U/L (0-32); Blood Urea Nitrogen 12 mg/dL (8-23); Calcium 8.8 mg/dL (8.5-10.5); Carbon Dioxide 25 mmol/L (22-29); Chloride 103 mmol/L (98-107); Creatinine Clr Calc Pharmacy 61.0433; Globulin 2.7 g/dL (1.3-4.6); Glucose 100 mg/dL (65-115); Lactate Dehydrogenase 154 U/L (135-214); Osmolality Calculated 284 mOsm/kg (285-295); Phosphorus 1.9 mg/dL (2.5-4.5); Potassium 4.3 mmol/L (3.5-5.1); Sodium 137 mmol/L (136-145); Total Bilirubin 0.5 mg/dL (0.15-1.2); Total Protein 6.2 g/dL (6.6-8.7); Uric Acid 3.8 mg/dL (2.4-5.7)
[2024-07-07 10:50] LABS: Slide Review Slide Review Perform
[2024-07-07 10:51] LABS: Absolute Neutrophil 1.7 10^3/cmm (1.4-6.5); Absolute Segmented Neutrophil 1.3 10/cmm (1.6-7.1); Anisocytosis 1+; Band Neutrophils Absolute 0.3 10^3/cmm (0.0-1.2); Eosinophils 1 %; Giant Platelets 1+; Lymphocytes 13 %; Lymphocytes Absolute 0.4 10^3/cmm (1.2-3.4); Macrocytosis Trace; Monocytes Absolute 0.2 10^3/cmm (0.1-0.6); Platelet Estimate Decreased (Normal); Segmented Neutrophils 54 %; Total Cells Counted 100 (0-100)
[2024-07-07 12:11] LABS: Calcium 8.2 mg/dL (8.5-10.5)
[2024-07-07 12:16] LABS: 25 Hydroxy Vitamin D 26 ng/mL (30-100)
[2024-07-07 12:33] LABS: Parathyroid Hormone 83.5 pg/mL (15-65)
[2024-07-11 13:24] LABS: Hematocrit 32.8 % (36-47); Mean Corpuscular HGB Conc 32.6 g/dL (30-55); Mean Corpuscular Hemoglobin 31.6 pg (27-33); Mean Corpuscular Volume 96.8 fl (85-98); Mean Platelet Volume 10.4 fL (7.4-10.4); Platelet Count 337 10^3/cmm (157-399); Red Blood Count 3.39 10^6/uL (3.85-5.65); Red Cell Distribution Width 13.2 % (12.1-15.1); White Blood Count 10.66 10^3/uL (3.29-11.43)
[2024-07-11 13:41] LABS: Alanine Aminotransferase 24 U/L (0-33); Albumin Level 3.5 g/dL (3.5-5.2); Alkaline Phosphatase 101 U/L (35-105); Anion Gap 13.2 (5-19); Aspartate Amino Transferase 22 U/L (0-32); Blood Urea Nitrogen 10 mg/dL (8-23); Calcium 8.7 mg/dL (8.5-10.5); Carbon Dioxide 30 mmol/L (22-29); Chloride 95 mmol/L (98-107); Creatinine Clr Calc Pharmacy 61.0433; Globulin 2.5 g/dL (1.3-4.6); Glucose 101 mg/dL (65-115); Lactate Dehydrogenase 309 U/L (135-214); Osmolality Calculated 279 mOsm/kg (285-295); Potassium 3.2 mmol/L (3.5-5.1); Sodium 135 mmol/L (136-145); Total Bilirubin 0.2 mg/dL (0.15-1.2)
[2024-07-11 13:43] LABS: Slide Review Slide Review Perform
[2024-07-11 13:44] LABS: Total Cells Counted 100 (0-100)
[2024-07-11 13:48] LABS: Absolute Neutrophil 6.6 10^3/cmm (1.4-6.5); Absolute Segmented Neutrophil 6.2 10/cmm (1.6-7.1); Band Neutrophils Absolute 0.4 10^3/cmm (0.0-1.2); Eosinophils 0 %; Lymphocytes 12 %; Lymphocytes Absolute 1.3 10^3/cmm (1.2-3.4); Monocytes Absolute 0.4 10^3/cmm (0.1-0.6); Platelet Estimate Normal (Normal); Segmented Neutrophils 58 %
[2024-07-18 07:47] LABS: Basophils # 0.1 10^3/uL (0.0-0.1); Basophils % 1.2 %; Eosinophils % 0.3 %; Hematocrit 36.4 % (36-47); Lymphocytes # 0.8 10^3/uL (0.8-4.8); Lymphocytes % 11.2 %; Mean Corpuscular HGB Conc 31.9 g/dL (30-55); Mean Corpuscular Hemoglobin 31.6 pg (27-33); Mean Corpuscular Volume 99.2 fl (85-98); Mean Platelet Volume 9.8 fL (7.4-10.4); Monocytes # 0.9 10^3/uL (0.2-0.9); Monocytes % 13.8 %; Neutrophils % 69.5 %; Nucleated Red Blood Cells % 0.6 %; Platelet Count 451 10^3/cmm (157-399); Red Blood Count 3.67 10^6/uL (3.85-5.65); Red Cell Distribution Width 15.7 % (12.1-15.1); White Blood Count 6.76 10^3/uL (3.29-11.43)
[2024-07-18 08:08] LABS: Alanine Aminotransferase 27 U/L (0-33); Albumin Level 3.8 g/dL (3.5-5.2); Alkaline Phosphatase 96 U/L (35-105); Anion Gap 12.3 (5-19); Aspartate Amino Transferase 25 U/L (0-32); Blood Urea Nitrogen 11 mg/dL (8-23); Calcium 9.1 mg/dL (8.5-10.5); Carbon Dioxide 27 mmol/L (22-29); Chloride 105 mmol/L (98-107); Creatinine Clr Calc Pharmacy 61.0433; Globulin 2.9 g/dL (1.3-4.6); Glucose 91 mg/dL (65-115); Lactate Dehydrogenase 295 U/L (135-214); Osmolality Calculated 289 mOsm/kg (285-295); Potassium 4.3 mmol/L (3.5-5.1); Sodium 140 mmol/L (136-145); Total Bilirubin 0.3 mg/dL (0.15-1.2); Total Protein 6.7 g/dL (6.6-8.7)
== END 2024-07-27 23:59 | disposition home or self-care (01) ==
PROVIDERS: Nurse Practitioner Family; PCP Nurse Practitioner Family; Visit Provider Internal Medicine Medical Oncology
DX: C83.38 Diffuse large B-cell lymphoma, lymph nodes of multiple sites; R91.8 Other nonspecific abnormal finding of lung field; Z87.891 Personal history of nicotine dependence; Z53.9 Procedure and treatment not carried out, unspecified reason
CPT/HCPCS: 36415; 36591; 36593; 80053; 82274; 82306; 82310; 83615; 83880; 83970; 84100; 84550; 85007; 85025; 96360; 99214; J2997; J7030

== ENCOUNTER 2024-07-22 14:00 | Oncology outpatient (recurring) (ONCR) | payer MEDICARE, OTHER, SELFPAY ==
--- NOTE | 2024-07-22 14:00 | PETR_ITS ---
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 Then, PET images were obtained. Attenuation corrected images were constructed using the CT scan. Fused images of PET and CT were reviewed. The standardized uptake values (SUV) reported below are maximum values within a region of interest, expressed in gm/ml. Exam includes orbital meatal line to mid-thigh. SUV normalization method: BodyWeight Radiopharmaceutical: 10.9 mCi F-18 FDG (Fluorodeoxyglucose), IV. Time of imaging post radiopharmaceutical administration: 52 minutes Injection site: RIGHT AC COMPARISON: 1. CT angio chest PE protcl [id number] 06/29/2024 11:[address] PET Scan 04/28/2024 1:[address] neck w con* [id number] 02/24/2024 4:05 PM FINDINGS: Tubes, catheters and devices: Left chest port terminates at the SVC. Brain: Visualized brain has normal physiologic uptake. Nasal cavity: Decreased left nasal cavity FDG avid soft tissue thickening now measures 7 mm thickness along the lateral nasal cavity with SUV max 5.0, previously filled the left nasal cavity with SUV max 25.1. Oral cavity: Anterior oral cavity FDG uptake without underlying CT abnormality similar to prior exam with SUV max 17.7, previously 16.0. Pharynx: No abnormal uptake. Larynx: No abnormal uptake. Lungs, pleura and trachea: No abnormal uptake. Bilateral emphysematous change and platelike atelectasis versus scarring. No consolidation or mass. Heart: Normal physiologic uptake. Coronary arteries: Mild coronary artery calcification. Mediastinal space: No abnormal uptake. Liver: No abnormal uptake. Gallbladder and biliary ducts: No abnormal uptake. Pancreas: No abnormal uptake. Spleen: No abnormal uptake. No splenomegaly. Calcified granuloma. Adrenal glands: No abnormal uptake. Kidneys and ureters: Normal physiologic uptake. Stomach and bowel: No abnormal uptake. Colonic diverticulosis without findings of diverticulitis. Vasculature: No abnormal uptake. Heavy systemic atherosclerotic calcification without aortic aneurysm. Lymph nodes: Resolved cervical lymphadenopathy. Right hilar FDG uptake with SUV max 4.8, previously 4.9. Left hilar FDG uptake shows SUV max 4.3, previously 4.8. Stable size nonenlarged AP window node shows SUV max 3.7, previously 5.4. Calcified mediastinal and right hilar lymph nodes in keeping with sequela of old granulomatous disease. Stable size rosa maria hepatis node measures 6 mm in the short axis and shows SUV max 3.1, previously 5.7. Skeleton: FDG uptake along the thoracic spine and upper lumbar spine without underlying CT abnormality, index L2 vertebral body shows SUV max 4.4. Symmetric FDG uptake also at the sacrum and pelvis. Lower level FDG uptake along the sternum and bilateral anterior ribs. Degenerative change along the spine. Soft tissues: No abnormal uptake in the visualized head, neck, chest, abdomen, pelvis, and extremities. METRICS: Mediastinal blood pool: SUV mean 2.4 Liver uptake: SUV mean 3.3 PET/PET skull to thigh SUBS [id number] IMPRESSION: 1. Decreased size and metabolic activity of left nasal cavity lesion. 2. Resolved cervical lymphadenopathy. 3. Decreased mediastinal lymph node FDG uptake and stable bilateral hilar FDG uptake. 4. Decreased FDG uptake at stable size rosa maria hepatis lymph node. 5. FDG uptake along the axial skeletal system most conspicuous along the thoracic and upper lumbar spine. This could represent hyperplasia/posttreatment change, lymphomatous involvement thought less likely but difficult to entirely exclude.
== END 2024-07-27 23:59 | disposition home or self-care (01) ==
LOC: RAD 14:02 → ONCMED 07-25 09:44
PROVIDERS: PCP Nurse Practitioner Family; Visit Provider Internal Medicine Medical Oncology
DX: C83.38 Diffuse large B-cell lymphoma, lymph nodes of multiple sites (principal)
CPT/HCPCS: 78815; A9552

== ENCOUNTER 2024-08-01 08:00 | Oncology outpatient (recurring) (ONCR) | payer MEDICARE, OTHER, SELFPAY ==
--- NOTE | 2024-07-28 06:15 | USCV_ITS ---
Yael Lisa Age: 79 Gender: F : 1945 Exam Date: 07/28/2024 06:20 Ordering Phys: Milady Ortiz APRN Technologist: [place] [facility] [place]: high risk meds BP: 120 / 70 HR: Rhythm: Sinus Technical Quality: Adequate MEASUREMENTS (Male / Female) Normal Values 2D ECHO LV Diastolic Diameter PLAX 4.5 cm 4.2 - 5.9 / 3.9 - 5.3 cm IVS Diastolic Thickness 1.0 cm 0.6 - 1.0 / 0.6 - 0.9 cm IVS Systolic Thickness 1.7 cm LVPW Diastolic Thickness 1.2 cm 0.6 - 1.0 / 0.6 - 0.9 cm LVPW Systolic Thickness 1.5 cm LVOT Diameter 2.2 cm LV Ejection Fraction 2D Teich 57.8 % LV Ejection Fraction MOD 4C 73.6 % LV Ejection Fraction MOD 2C 61.3 % LV Ejection Fraction 2C AL 61.8 % LA Diameter 3.7 cm RA Systolic Volume 4C AL 28.3 ml RA Systolic Volume 4C MOD 26.9 ml Aorta at Sinotubular Diameter 2.6 cm IVC Diameter 1.5 cm M-MODE LA Ao Ratio MM 1.4 AV Cusp Separation MM 2.1 cm FINDINGS Left Ventricle Normal left ventricular size, systolic function and wall thickness, with no regional wall motion abnormalities. Left ventricular ejection fraction is estimated at 60 %. Right Ventricle Right Atrium Left Atrium Mitral Valve Aortic Valve Tricuspid Valve Pulmonic Valve Pericardium Aorta IVC CONCLUSIONS Limited echo Normal left ventricular size, systolic function and wall thickness, with no regional wall motion abnormalities. Left ventricular ejection fraction is estimated at 60 %. Emily Mistry MD (Electronically Signed) Final Date: 28 Jul 2024 10:35 S
[2024-08-01 08:05] LABS: Basophils # 0.1 10^3/uL (0.0-0.1); Eosinophils # 0.3 10^3/uL (0.0-0.8); Eosinophils % 4.3 %; Hematocrit 38.3 % (36-47); Lymphocytes # 0.7 10^3/uL (0.8-4.8); Mean Corpuscular HGB Conc 32.9 g/dL (30-55); Mean Corpuscular Hemoglobin 32.1 pg (27-33); Mean Corpuscular Volume 97.7 fl (85-98); Mean Platelet Volume 9.9 fL (7.4-10.4); Monocytes # 0.8 10^3/uL (0.2-0.9); Monocytes % 13.4 %; Neutrophils # 4.13 10^3/uL (1.8-7.7); Nucleated Red Blood Cells % 0 %; Platelet Count 289 10^3/cmm (157-399); Red Blood Count 3.92 10^6/uL (3.85-5.65); Red Cell Distribution Width 15.6 % (12.1-15.1); White Blood Count 5.99 10^3/uL (3.29-11.43)
[2024-08-01 08:25] LABS: Alanine Aminotransferase 16 U/L (0-33); Albumin Level 3.9 g/dL (3.5-5.2); Alkaline Phosphatase 124 U/L (35-105); Anion Gap 15.1 (5-19); Aspartate Amino Transferase 21 U/L (0-32); Blood Urea Nitrogen 13 mg/dL (8-23); Calcium 9.5 mg/dL (8.5-10.5); Carbon Dioxide 28 mmol/L (22-29); Chloride 102 mmol/L (98-107); Creatinine Clr Calc Pharmacy 61.2121; Globulin 3.1 g/dL (1.3-4.6); Glucose 93 mg/dL (65-115); Osmolality Calculated 292 mOsm/kg (285-295); Potassium 4.1 mmol/L (3.5-5.1); Sodium 141 mmol/L (136-145); Total Bilirubin 0.4 mg/dL (0.15-1.2)
[2024-08-01 09:00] VITALS: BP 138/86; PULSE 68; RESP 16; TEMP 36.7; O2SAT 96
== END 2024-08-27 23:59 | disposition home or self-care (01) ==
PROVIDERS: PCP Nurse Practitioner Family; Visit Provider Internal Medicine Medical Oncology
DX: Z53.9 Procedure and treatment not carried out, unspecified reason; C83.38 Diffuse large B-cell lymphoma, lymph nodes of multiple sites; Z87.891 Personal history of nicotine dependence; Z95.828 Presence of other vascular implants and grafts
CPT/HCPCS: 80053; 85025; 93308; 99214

== ENCOUNTER 2024-08-04 12:54 | Outpatient (CLI) | payer MEDICARE, OTHER, SELFPAY ==
--- NOTE | 2024-08-04 13:00 | CT_ITS ---
WS: [id number] CT SINUSES TECHNIQUE: Noncontrast CT of the paranasal sinuses with coronal and sagittal reformatted images. CLINICAL INFORMATION: NEOPLASM OF UNCERTAIN BEHAVIOR COMPARISON: PET/CT 04/28/2024 and 07/22/2024 DLP: 364.[address] scans at [facility] use at least one of these dose optimization techniques: automated exposure control; mA and/or kV adjustment per patient size (includes targeted exams where dose is matched to clinical indication); or iterative reconstruction. FINDINGS: Previously described LEFT nasal mass appears improved compared to the PET CT 04/28/2024 and similar in appearance to the recent PET/CT 07/22/2024. No evidence of progression. Findings compatible with interval response to therapy. Residual soft tissue thickening involving the LEFT inferior turbinate. Paranasal sinuses are well aerated. Normal posterior nasopharynx. Mastoid air cells are well aerated. CT/CT sinus wo con* [id number] IMPRESSION: Previously described LEFT nasal mass appears improved compared to the prior augustin dies presumably due to interval treatment. No evidence of progression. No other acute findings.
== END 2024-08-04 12:55 | disposition home or self-care (01) ==
LOC: RAD 12:55
PROVIDERS: PCP Nurse Practitioner Family; Visit Provider Specialist
DX: D38.5 Neoplasm of uncertain behavior of other respiratory organs (principal); M79.89 Other specified soft tissue disorders
CPT/HCPCS: 70486

== ENCOUNTER 2024-09-12 12:23 | Oncology outpatient (recurring) (ONCR) | payer MEDICARE, OTHER, SELFPAY | END 2024-09-26 23:59 | disposition home or self-care (01) | PROVIDERS: PCP Nurse Practitioner Family; Visit Provider Internal Medicine Medical Oncology | DX: Z45.2 Encounter for adjustment and management of vascular access device (principal); Z95.828 Presence of other vascular implants and grafts | CPT/HCPCS: 96523 ==

== ENCOUNTER 2024-10-17 11:00 | Outpatient (CLI) | payer MEDICARE, OTHER, SELFPAY ==
--- NOTE | 2024-10-17 11:06 | XRR_ITS ---
PROCEDURE INFORMATION: Exam: XR Left Knee Exam date and time: 10/17/2024 11:24 AM Age: 79 years old Clinical indication: Pain; Knee; Left; HX of lymphoma; Additional info: M25.562 - pain in left knee TECHNIQUE: Imaging protocol: Radiologic exam of the left knee. Views: 3 views. COMPARISON: No relevant prior studies available. FINDINGS: Bones/joints: No acute fracture or dislocation. Moderate narrowing of the medial compartment with small marginal osteophytes. No joint effusion. Soft tissues: Normal. XR/XR knee LT 3V* [id number] IMPRESSION: 1. No acute osseous findings. 2. Degenerative changes most pronounced in the medial compartment.
== END 2024-10-17 11:01 | disposition home or self-care (01) ==
LOC: RAD 11:03
PROVIDERS: PCP Nurse Practitioner Family; Visit Provider Nurse Practitioner Family
DX: M25.562 Pain in left knee (principal); M17.12 Unilateral primary osteoarthritis, left knee
CPT/HCPCS: 73562

== ENCOUNTER 2024-10-17 11:28 | Oncology outpatient (recurring) (ONCR) | payer MEDICARE, OTHER, SELFPAY | END 2024-10-27 23:59 | disposition home or self-care (01) | PROVIDERS: PCP Nurse Practitioner Family; Visit Provider Internal Medicine Medical Oncology | DX: Z45.2 Encounter for adjustment and management of vascular access device (principal); Z95.828 Presence of other vascular implants and grafts | CPT/HCPCS: 96523 ==

== ENCOUNTER → 2024-11-02 11:35 | Outpatient (BNVA) | payer MEDICARE, OTHER, SELFPAY | PROVIDERS: PCP Nurse Practitioner Family; Visit Provider Nurse Practitioner | DX: M17.12 Unilateral primary osteoarthritis, left knee (principal); G89.29 Other chronic pain | CPT/HCPCS: 20610; 73560; 73565; 99204; J1100; J2795; J3301; J9999 ==

== ENCOUNTER 2024-11-21 11:38 | Oncology outpatient (recurring) (ONCR) | payer MEDICARE, OTHER, SELFPAY ==
--- NOTE | 2024-11-18 08:30 | PETR_ITS ---
PROCEDURE INFORMATION: Exam: PET/CT Skull Base to Mid-thigh Exam date and time: 11/18/2024 9:25 AM Age: 79 years old Clinical indication: Restaging of diffuse large b-cell lymphoma with initial involvement of the left nasal cavity and lymph nodes in the neck. LABS AND CLINICAL REPORTS: Glucose: 109 mg/dl Treatment strategy for malignancy (PET staging): Restaging (PS) TECHNIQUE: Imaging protocol: Following at least four-hour fasting and following the injection of radiopharmaceutical, low dose CT images were obtained. Then, PET images were obtained. Attenuation corrected images were constructed using the CT scan. Fused images of PET and CT were reviewed. The standardized uptake values (SUV) reported below are maximum values within a region of interest, expressed in gm/ml. Exam includes orbital meatal line to mid-thigh. SUV normalization method: BodyWeight Radiopharmaceutical: 10 mCi F-18 FDG (Fluorodeoxyglucose), IV. Time of imaging post radiopharmaceutical administration: 53 minutes Injection site: left ac COMPARISON: PT PET skull to thigh SUBS [id number] 07/22/2024 FINDINGS: Tubes, catheters and devices: Port catheter placed via the left subclavian vein terminates in the superior vena cava. Brain: On the nondedicated limited brain images there is no abnormal distribution of the radiotracer in the cotto and white matter. Pharynx: Normal distribution of the radiotracer in nasopharyngeal, and oropharyngeal structures. Larynx: Normal distribution of the radiotracer in laryngeal structures. Lungs, pleura and trachea: No abnormal uptake. No lung nodules or masses. Severe centrilobular emphysema in the upper lobes. No pleural effusion. Heart: Normal physiologic uptake. Mediastinal space: No abnormal uptake. Liver: Normal size without abnormal radiotracer uptake. Gallbladder and biliary ducts: No abnormal uptake. Pancreas: Normal distribution of radiotracer. Spleen: Normal size without abnormal radiotracer uptake. Small calcified granuloma. Adrenal glands: No abnormal uptake. No nodules. Kidneys and ureters: Normal physiologic uptake. No hydronephrosis. Stable 0.4 cm hyperdense nodule laterally in the lower pole of the left kidney on series 202, image 192 likely representing small hemorrhagic cyst. Stomach and bowel: No abnormal uptake. Mild diverticulosis of the sigmoid colon. Vasculature: No abnormal uptake. No aortic aneurysm. Lymph nodes: No abnormal uptake. No lymphadenopathy in the head, neck, chest, abdomen, pelvis, and extremities. Stable sequela of exposure to granulomatous disease with calcified granulomas in normal-size a right paratracheal and right hilar lymph nodes. Skeleton: No abnormal uptake in the visualized axial and appendicular skeleton. Soft tissues: No abnormal uptake in the visualized head, neck, chest, abdomen, pelvis, and extremities. METRICS: Mediastinal blood pool maximal uptake is 2.8 SUV. Liver maximal uptake is 3.6 SUV. PET/PET skull to thigh SUBS [id number] IMPRESSION: Complete response to treatment with no abnormal radiotracer uptake. The response score is 1 based on Deauville 5 point scale.
[2024-11-21 12:09] LABS: Hematocrit 38.3 % (36-47); Hemoglobin 12.80 g/dL (11.27-16.99); Mean Corpuscular HGB Conc 33.4 g/dL (30-55); Mean Corpuscular Hemoglobin 32.2 pg (27-33); Mean Corpuscular Volume 96.2 fl (85-98); Nucleated Red Blood Cells % 0 %; Platelet Count 190 10^3/cmm (157-399); Red Blood Count 3.98 10^6/uL (3.85-5.65); White Blood Count 6.58 10^3/uL (3.29-11.43)
[2024-11-21 12:31] LABS: Alanine Aminotransferase 18 U/L (0-33); Albumin Level 3.9 g/dL (3.5-5.2); Alkaline Phosphatase 145 U/L (35-105); Anion Gap 12.3 (5-19); Aspartate Amino Transferase 17 U/L (0-32); Blood Urea Nitrogen 14 mg/dL (8-23); Calcium 9.4 mg/dL (8.5-10.5); Carbon Dioxide 30 mmol/L (22-29); Chloride 100 mmol/L (98-107); Creatinine Clr Calc Pharmacy 60.5372; Globulin 2.8 g/dL (1.3-4.6); Glucose 88 mg/dL (65-115); Osmolality Calculated 286 mOsm/kg (285-295); Potassium 4.3 mmol/L (3.5-5.1); Sodium 138 mmol/L (136-145); Total Protein 6.7 g/dL (6.6-8.7)
== END 2024-11-27 23:59 | disposition home or self-care (01) ==
PROVIDERS: PCP Nurse Practitioner Family; Visit Provider Internal Medicine Medical Oncology
DX: Z08 Encounter for follow-up examination after completed treatment for malignant neoplasm; Z85.72 Personal history of non-Hodgkin lymphomas; Z87.891 Personal history of nicotine dependence; Z95.828 Presence of other vascular implants and grafts; Z53.9 Procedure and treatment not carried out, unspecified reason
CPT/HCPCS: 36591; 78815; 80053; 83615; 85025; 99214; A9552

== ENCOUNTER 2025-01-04 10:54 | Oncology outpatient (recurring) (ONCR) | payer MEDICARE, OTHER, SELFPAY | END 2025-01-27 23:59 | disposition home or self-care (01) | LOC: ONCMED 10:56 | PROVIDERS: PCP Nurse Practitioner Family; Visit Provider Internal Medicine Medical Oncology | DX: Z45.2 Encounter for adjustment and management of vascular access device (principal); Z95.828 Presence of other vascular implants and grafts | CPT/HCPCS: 96523 ==

== ENCOUNTER → 2025-02-06 11:28 | Outpatient (BNVA) | payer MEDICARE, OTHER, SELFPAY | PROVIDERS: PCP Nurse Practitioner Family; Visit Provider Nurse Practitioner | DX: Z01.818 Encounter for other preprocedural examination (principal) | CPT/HCPCS: 36415; 80053; 81001; 85025 ==

== ENCOUNTER 2025-02-14 09:45 | Oncology outpatient (recurring) (ONCR) | payer MEDICARE, OTHER, SELFPAY ==
--- NOTE | 2025-02-13 17:00 | CT_ITS ---
WS: [id number] CT LEFT knee, noncontrast HISTORY: pre op CT scan for left knee TECHNIQUE: Protocol for [facility] total knee replacement has been obtained. This includes axial imaging through the LEFT hip, LEFT knee and LEFT ankle. DLP: 981.86 mGy.cm COMPARISON: Knee radiograph 11/02/2024 LEFT hip: Mild degenerative air in the SI joints. No significant narrowing of the LEFT hip. Bone island in the anterior acetabulum. Scattered atherosclerotic plaque in the iliac arteries. LEFT knee: Mild to moderate tricompartment joint space narrowing with small osteophytic osteophytes. No fractures. Very small joint effusion. Small Candelario's cyst. LEFT ankle: Negative. CT/CT knee [facility] [id number] IMPRESSION: CT imaging provided for [facility] robotic total knee replacement.
== END 2025-02-26 23:59 | disposition home or self-care (01) ==
PROVIDERS: PCP Nurse Practitioner Family; Visit Provider Internal Medicine Medical Oncology
DX: Z45.2 Encounter for adjustment and management of vascular access device (principal); Z95.828 Presence of other vascular implants and grafts; M17.12 Unilateral primary osteoarthritis, left knee
CPT/HCPCS: 73700; 96523

== ENCOUNTER → 2025-02-27 14:42 | Outpatient (BNVA) | payer MEDICARE, OTHER, SELFPAY | PROVIDERS: PCP Nurse Practitioner Family; Visit Provider Specialist | DX: M17.12 Unilateral primary osteoarthritis, left knee (principal) | CPT/HCPCS: 99214 ==

== ENCOUNTER 2025-02-28 10:19 | Inpatient (IN) | payer MEDICARE, OTHER, SELFPAY ==
[2025-02-28] VITALS (16 sets, daily range): BP systolic 101–145; BP diastolic 58–97; PULSE 51–68; RESP 10–22; TEMP 36.1–36.6; O2SAT 91–100; BMI 28.2
--- NOTE | 2025-02-28 06:34 | ECG_ITS ---
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 Measurements Intervals Otis Rate: 60 P: 80 IA: 187 QRS: 45 QRSD: 106 T: 70 QT: 421 QTc: 424 Interpretive Statements SINUS RHYTHM Compared to ECG 06/29/2024 11:45:51 T-wave abnormality no longer present Electronically Signed On 02-28-2025 20:53:10 HAIR TINTER by Rios Alston M.D. [email or web address]
--- NOTE | 2025-02-28 06:50 | ANES.PREANE2 ---
Pre-Anesthetic Assessment Height/Weight: Height 1.68 m Weight 79.379 kg Temp Pulse Resp BP Pulse Ox O2 Del Method 97.8 F 68 18 145/77 95 Room Air 02/28/25 06:13 02/28/25 06:13 02/28/25 06:13 02/28/25 06:13 02/28/25 06:13 02/28/25 06:16 Operation Date: 02/28/25 07:00 Proposed Procedures p Romain Robot Total Knee Arthroplasty(Left) - Rosalinda Wallis MD Familial anesthetic complications: none Was Beta Laz taken within 24 hours: N/A Was Clonidine taken within 24 hours: N/A Last intake: Intake Last Liquid Date 02/27/25 Last Liquid Time 20:00 Last Solid Date 02/27/25 Last Solid Time 18:00 Social No alcohol and No tobacco Exam alert, oriented x 3, clear to auscultation bilaterally and regular rate & rhythm CV/HEM Hypertension Musc/skel lymphoma Anesthetic Plan ASA status: 3 Anesthesia: Regional (specify below) Other: spinal Risk of > 500 ml blood loss (7ml/kg in children): No Medications/Allergies Home Medications ?Medication ?Instructions ?Recorded ?Confirmed ?Last Taken ?Type docusate sodium 100 mg capsule 100 mg PO BID #14 caps 05/17/24 02/27/25 02/27/25 Rx (Colace) lorazepam 1 mg tablet 0.5 - 1 mg (0.5 - 1 x 1 mg) PO Q6H 06/15/24 02/27/25 Unknown Rx PRN severe nausea #30 tabs lidocaine-prilocaine 2.5 %-2.5 % 1 applic topical .COMPLEX #30 grams 06/16/24 02/27/25 02/27/25 Rx topical cream ascorbic acid (vitamin C) 1,000 mg 1 g PO DAILY 06/29/24 02/27/25 02/27/25 History tablet (Vitamin C) cholecalciferol (vitamin D3) 125 125 mcg PO DAILY 06/29/24 02/27/25 02/27/25 History mcg (5,000 unit) tablet (Vitamin D3) flaxseed oil 1,000 mg capsule 1,000 mg PO DAILY 06/29/24 02/27/25 02/27/25 History magnesium 250 mg tablet 250 mg PO DAILY 04/05/2402/27/25 02/27/25 History polyethylene glycol 3350 17 4 g PO DAILY constipation 06/29/24 02/27/25 06/28/24 History gram/dose oral powder (Miralax) vitamin B complex 0.5 tab PO DAILY 06/29/24 02/27/25 02/27/25 History sodium di- and 1 tab PO BID 15 days #30 tabs 07/07/24 02/27/25 02/27/25 Rx monophosphate-potassium phos monobasic 250 mg tablet (C-Smzn-Dhlbrnf) bisoprolol fumarate 10 mg tablet 10 mg PO DAILY #90 tabs 01/30/25 02/27/25 02/27/25 Rx hydrochlorothiazide 25 mg tablet 25 mg PO DAILY #90 tabs 01/30/25 02/27/25 02/27/25 Rx amitriptyline 25 mg tablet 25 mg PO DAILY 02/27/25 02/27/25 02/27/25 History atorvastatin 20 mg tablet 20 mg PO DAILY 02/27/25 02/27/25 02/27/25 History Allergies Allergy/AdvReac Type Severity Reaction Status Date / Time acetaminophen Allergy Unknown Verified 02/27/25 15:11 azithromycin Allergy Unknown Verified 02/27/25 15:11 Opioids - Morphine Analogues Allergy Unknown Verified 02/27/25 15:11 Current Medications Generic Name Dose Route Start Last Admin Trade Name Freq PRN Reason Stop Dose Admin Sodium Chloride 1,000 mls @ 30 mls/hr 02/28/25 06:00 02/28/25 06:31 Sodium Chloride 0.9% IV 03/01/25 05:59 30 mls/hr .Q24H NEISHA Administration PFSH Anesthesia Medical History Insomnia Hypertension Hyperlipidemia Surgical History History of appendectomy History of tubal ligation Family History Mother , at age 87 Hypertension Congestive heart failure (CHF) Father , at age 75 Hypertension Congestive heart failure (CHF) Social History Smoking and tobacco/nicotine status: former use of tobacco/nicotine Quit status (tobacco/nicotine): has quit using Year quit tobacco: 13 years ago Alcohol intake: never Substance/Drug Use: never Adopted: No Caregiver/support person: No Lives independently: No Household members: spouse Marital status: service: No Current occupational status: retired Sexually active: Yes Do you think of yourself as: Straight/Heterosexual Current gender identity: Female Data Anesthesia Cardiac Studies: Echocardiogram 05/25/24 Echocardiogram Limited Views 07/28/24
--- NOTE | 2025-02-28 07:03 | P.HPUD_ITS ---
Surgery/Procedure H&P Update DATE OF PROCEDURE: February 28, 2025 DATE H&P PERFORMED: 02/20/25 H&P UPDATE INFORMATION: I have reviewed H&P completed within last 30 days, I have examined patient prior to procedure, No changes to prior documentation, H&P is in [facility] EMR on date indicated and Risks and benefits of the procedure reviewed PLANNED PROCEDURE: Operation Date: 02/28/25 07:00 Proposed Procedures p Romain Robot Total Knee Arthroplasty(Left) - Rosalinda Wallis MD Related Problem List Diagnoses 1. Primary osteoarthritis of left knee:
[2025-02-28] MEDS: ceFAZolin 2,000 mg SDV 2000 MG IVP ×3 (07:04→22:16)
[2025-02-28] MEDS: tranexamic acid 1,000 mg/10mL SDV 1000 MG IV (07:50)
[2025-02-28] MEDS: BUPivacaine 0.5% INJ 10 mL 20 ML INJECTION (08:15)
[2025-02-28] MEDS: BUPivacaine liposome 13.3 mg/mL SDV 20 mL 266 MG INJECTION (08:15)
[2025-02-28] MEDS: ceFAZolin 1,000 mg SDV 2000 MG IRRIGATION (08:21)
--- NOTE | 2025-02-28 10:33 | XR_ITS ---
WS: [id number] Exam: XR knee LT 1-2V [id number] Date/Time of Exam: 02/28/2025 10:43 AM Reason For Exam: Status post left total knee arthroplasty Comparison 11/02/2024. Total knee arthroplasty is noted in excellent position. Postop changes in the adjacent soft tissues. XR/XR knee LT 1-2V [id number] IMPRESSION: 1. Total knee replacement in excellent position.
[2025-02-28] MEDS: acetaminophen 1,000 MG/100 ML PIGGYBACK 400 MG IV ×2 (10:50→20:24)
--- NOTE | 2025-02-28 10:54 | PC.NURSE ---
1050 - per Dr Wallis order - trial dose of Tylenol given d/t pt stating she had an allergic reaction when she was 32 years old - pt states Tylenol increased her heart rate - pt on teletypesetter monitor at present time - heart rate ranging from 51-57
--- NOTE | 2025-02-28 10:57 | PM.OP ---
Operative Report Date of procedure: February 28, 2025 Pre-op diagnosis: Primary osteoarthritis left knee Post-op diagnosis: Primary osteoarthritis left knee Post-op findings: Severe degenerative osteoarthritis with a Antoine of cartilage and slight valgus deformity. Procedure done: Left total knee arthroplasty with Romain guidance Implants: The Sarah total knee system with a size 4 triathlon beaded cruciate retaining femur left, a triathlon titanium tibial component size 4 beaded, a triathlon X3 tibial bearing CS insert size 4 X 10 mm and a beaded triathlon titanium asymmetric patella size 35 x 10 mm Specimens removed/disposition: Bone, disposed of Pathology: None Surgeon: Rosalinda Wallis MD Antichecking Iron Worker: Ciera Stover, nurse practitioner who services were required for retraction, exposure, closure, and completion of the surgical procedure Estimated blood loss (mL): 300 Tourniquet time (min): 0 (Not utilized) IV fluids (mL): 1,800 Urine output (mL): 200 Complications: None Findings: Severe degenerative osteoarthritis with slight valgus deformity Condition: stable Disposition: PACU (Then admit to floor under observation status for postoperative rehabilitation and pain management) Brief History: This 79-year-old woman presented with complaints of severe left knee pain causing her issues with activities of daily living. She reported pain up to an 8 of 10 and sometimes at night, the pain will go to a 10 of 10. The patient had nonoperative options such as cortisone injections. She had also used a knee brace and participated in home exercise program. Anti-inflammatories were also of no significant benefit. X-ray images demonstrated severe tricompartmental osteoarthritis. After discussion in the office, the patient wished to proceed with total knee arthroplasty. Risks and complications of surgery were discussed with her, and consents were signed preoperatively in the office. Procedure: The patient was brought to the operating theater, and after undergoing adequate spinal anesthesia with MAC, ASA 3, the left lower extremity was prepped with DuraPrep and draped in usual fashion following placement of a tourniquet high on the leg. The leg was then draped free. Tourniquet was placed on the leg but was not elevated throughout the surgical procedure. Following exposure of the site of surgery, a surgical pause was performed. At the time of the surgical pause, we confirmed the site and side of surgery. Additionally, we confirmed the appropriate and timely administration of preoperative antibiotics, Ancef 2 g. Tranexamic acid 1 g was given preoperatively and will be given again on the floor for 1 dose postoperatively. The availability of equipment was confirmed, and the patient's identity was verbalized as well. Following the surgical pause, an incision was made centering over the patella continuing proximally and distally as necessary to allow access to the knee joint. Dissection continued through skin and soft tissues using a scalpel. Hemostasis was obtained using electrocautery. The skin incision was followed by a median parapatellar arthrotomy. The leg was extended and the patella was able to be displaced laterally. Appropriate arrays and markers were placed in appropriate position for use of the Romain. Preoperative planning had been accomplished and was discussed in detail with the Romain sales representative education courses. Intraoperative mapping of the femur and tibia was accomplished after the arrays were placed. Once we had accomplished the Romain mapping, we began the appropriate resections for placement of the prosthesis. The plan was for a cruciate retaining right total knee arthroplasty. Once appropriate mapping had been accomplished retraction was established using manual retraction by the [facility] leg positioner and retractors. The knee was evaluated. There was eburnation particularly of the femoral condyles.? There were osteophytes about the medial and lateral tibial plateaus.? After balancing the knee within the Romain program, the appropriate bone resection was accomplished. Initial resection was accomplished on the tibia followed by appropriate resections on the femur. We had performed a medial release at the beginning of the procedure to allow for placement of the array. Proximal tibia was evaluated and it was felt that appropriate size for the tibia was a size 4, and appropriate femoral size was a size 4. A trial reduction was accomplished after osteophytes had been removed, the medial and lateral meniscus were excised, and bone cuts had been accomplished as above. We had removed the anterior cruciate ligament at the beginning of the case and preserved the posterior cruciate ligament. Trial reduction was accomplished with a size 4 femoral cruciate retaining component and a size 4 tibia with a CS tibial bearing insert which was 9 mm in thickness. We increased and trialed the 10 mm in thickness which was felt to give a better balance to the knee. Trial reduction demonstrated that the knee had excellent stability, full extension, and full flexion. The trial components were removed after the femur had been drilled. Prior to removal of the tibial tray which had been pinned in position with appropriate rotation as determined by the Romain plan, we broached the tibia. Subsequently, the 4 drill holes were made for the prosthetic component. All trial components had been removed, and the wound was irrigated. Plans were made for insertion of the prosthetic components. Prior to this, the patella was manually prepared. After resection of the articular surface, it was measured and measured a 35 mm patella. Patellar height was restored with the patellar component. Once again, the wound was irrigated. The Tritanium tibia was impacted into position.? The beaded femur was then impacted into position in a cementless fashion. The CS tibial insert was placed prior to placement of the femoral component. The patella was pressed into position with a patellar clamp.? Exparel was injected prior to placement of the components. The knee was then copiously irrigated with betadine and saline and suctioned dry. Attention was then directed to closure. Closure was accomplished with 0 Vicryl in the fascial tissues followed by a running #1 strata fix from proximal to distal and another from distal to proximal.? This was followed by Surgiflo and vancomycin powder. Subcutaneous tissues were closed with 2-0 Monocryl interrupted, and the skin was closed in a running subcuticular fashion with 3-0 Monocryl strata fix.? A sterile dressing was then placed consisting of Dermabond Prineo, OpSite, sterile soft roll including over the foot, and an Manuel wrap. The patient was returned the Recovery Room in a satisfactory condition. X-rays were obtained and reviewed there.? The patient will be discharged to the floor for postoperative rehabilitation and pain management. Related Problem List Diagnoses 1. Primary osteoarthritis of left knee:
--- NOTE | 2025-02-28 11:02 | PC.NURSE ---
1102 - Dr Wallis at bedside to assess pt after trial Tylenol - no issues noted
--- NOTE | 2025-02-28 11:17 | PC.NURSE ---
1107 - accepted into room 263 with Shamar, RN at side - no distress upon this nurse exiting care - pt placed on 2L NC sat 91% - 131/65 - pulse 51 - temp 97.0
[2025-02-28] MEDS: tranexamic acid 1,000 MG/100 ML PREMIX 600 MG IV (12:58)
[2025-02-28] MEDS: mupirocin oint 22 gm 1 APPLIC NASAL (17:49)
[2025-02-28] MEDS: sennosides-docusate Tablet 2 TAB PO (17:49)
[2025-02-28] MEDS: chlorhexidine gluconate 0.12% Btl 473 mL 30 ML MUCOUS MEM ×2 (17:51→22:16)
[2025-02-28] MEDS: ondansetron 2 mg/ML SDV 2 mL 4 MG IVP (19:21)
[2025-03-01 00:20] VITALS: BP 110/62; PULSE 76; RESP 18; TEMP 36.6; O2SAT 94
[2025-03-01 03:18] VITALS: BP 112/68; PULSE 77; RESP 18; TEMP 36.8; O2SAT 93
[2025-03-01] MEDS: acetaminophen 1,000 MG/100 ML PIGGYBACK 400 MG IV ×2 (04:09→14:35)
[2025-03-01] MEDS: ATORVASTATIN 20 MG TABLET PO (04:11)
[2025-03-01] MEDS: multivitamin therapeutic Tablet 1 TAB PO (04:12)
[2025-03-01] MEDS: sennosides-docusate Tablet 2 TAB PO ×2 (04:13→17:38)
[2025-03-01] MEDS: mupirocin oint 22 gm 1 APPLIC NASAL (04:13)
[2025-03-01] MEDS: polyethylene glycol 3350 Pkt 17 gm PO (04:14)
[2025-03-01] MEDS: chlorhexidine gluconate 0.12% Btl 473 mL 30 ML MUCOUS MEM ×3 (04:23→23:27)
[2025-03-01] MEDS: ondansetron 2 mg/ML SDV 2 mL 4 MG IVP ×2 (05:34→14:55)
[2025-03-01 05:36] LABS: Hematocrit 29.5 % (36-47); Hemoglobin 9.70 g/dL (11.27-16.99); Mean Corpuscular HGB Conc 32.9 g/dL (30-55); Mean Corpuscular Hemoglobin 32.0 pg (27-33); Mean Corpuscular Volume 97.4 fl (85-98); Nucleated Red Blood Cells % 0 %; Platelet Count 188 10^3/cmm (157-399); Red Blood Count 3.03 10^6/uL (3.85-5.65); White Blood Count 7.20 10^3/uL (3.29-11.43)
--- NOTE | 2025-03-01 05:58 | PC.NURSE ---
Hendrickson catheter removed per provider orders. Yellow-colored urine draining into collection bag prior to removal. Catheter removed without complication; catheter noted to be fully intact. Pt tolerated procedure well. Education provided regarding expected first void, including timeframe to void, signs of urinary retention, and when to notify staff. Pt verbalized understanding.
[2025-03-01] MEDS: ceFAZolin 2,000 mg SDV 2000 MG IVP (06:13)
[2025-03-01 07:21] VITALS: BP 88/44; PULSE 80; RESP 16; TEMP 36.6; O2SAT 92
[2025-03-01 08:22] VITALS: BP 94/50
--- NOTE | 2025-03-01 08:36 | PC.CHAP ---
Pastoral Care Encounter/Spiritual Assessment Type of Contact [] Declined telephone operator visit [] Patient/Family/Request visit [] Outpatient visit [] Follow-up visit [] Physician referral [] Code/Alert [x] Routine visit [] Staff referral [] Actively dying [] Patient sleeping [] Family support [] [] Out of room [] Palliative care [] [] Receiving care in room [] Pre-surgical visit [] Trauma [] Long length of stay [] ICU visit [] Other: Relational/Emotional Strength [x] Patient feels connected with others/family/visitors/staff [] Distress [] Loneliness/isolation [] Abandonment Spirituality of Patient [x] Person of Yadi [] Attends Denominational of their Yadi [x] Believes in Prayer [] Reads Bible or Moravian materials [] There are Spiritual issues to be addressed Torch Straightener And Heater Interventions [x] Prayer [x] Active listening [] Non-anxious presence [x] Spiritual/emotional support [] Crisis/trauma care [] Spiritual counseling [] Bereavement support [] Provided bereavement packet [] Provided Bible/devotional materials [] Provided toy/stuffed animal, coloring book to patient or family member [] Provided Communion [] Anointing/[place] [] Salvation [x] Completed spiritual assessment [] Other: Impact on Illness or Injury [] Angry [] Fearful [] Anxious [] Often cries [] Exhaustion [] Unable to work [] Unable to attend anabaptist [] Unable to walk/stand [] Unable to read [] Unable to drive [] Unable to eat/drink [] Unable to sleep [] Unable to be with family [] Patient intubated [] Other: Summary Time spent with patient 5 min
--- NOTE | 2025-03-01 16:43 | P.PN_ITS ---
Subjective 2 Subjective: Patient is seen in her room following same-day surgery for left total knee arthroplasty. Blood pressures have been a little bit soft, and the patient has had difficulty controlling her pain secondary to nontolerant of most pain medications. Patient is currently using Tylenol and Toradol, but we will be changing her over to diclofenac rather than continuing the Toradol aggressively. Patient is seen with her daughter in the room. Dressing is removed, and questions are answered. Medications: Reviewed: Yes Vitals/I&O/Wt Last Vital Signs Temp 97.9 F 03/01/25 07:21 Pulse 80 03/01/25 07:21 Resp 16 03/01/25 07:21 BP 94/50 03/01/25 08:22 Pulse Ox 92 03/01/25 07:21 O2 Del Method Room Air 03/01/25 03:18 O2 Flow Rate 2 02/28/25 11:55 03/01/25 03/01/25 03/01/25 06:59 14:59 22:59 Intake Total 100 / 1890 2220 / 2220 Output Total 400 / 1455 200 / 200 Balance -300 / 435 2220 / 2220 -200 / 2020 Weight last 48 hrs Weight 198 lb 2 oz Weight 197 lb 9.6 oz Weight 175 lb Physical Exam 2 Const: COMMON NORMALS: no acute distress, average body habitus, patient oriented x3 and alert GENERAL APPEARANCE: cooperative and comfortable O RIENTATION/CONSCIOUSNESS: Yes awake HENMT: COMMON NORMALS: normocephalic and atraumatic HEAD & SCALP: n ormocephalic and atraumatic Eye: GENERAL EYE: appearance normal, both eyes and all related structures Chest: COMMONS NORMALS: normal inspection of the chest Resp: COMMON NORMALS: normal respiratory effort EFFORT & INSPECTION: Yes able to speak in complete sentences and Yes symmetric chest movement Extremity: LEFT LOWER EXTREMITY: Yes knee joint (Large outer dressing is removed, there is minimal swelling or ecchymosis) Left knee: Yes inspection (Able to straight leg raise), Yes palpation (Minimal tenderness), Yes ROM (Flexion to approximately 60 degrees actively) and Yes neurovascular exam (Intact distally with no evidence of DVT) Neuro: COMMON NORMALS: patient oriented x3 SENSORIUM/ORIENTATION: Yes alert Psych: COMMON NORMALS: mental status grossly normal APPEARANCE: Yes grossly normal ATTITUDE: Yes calm and Yes engaged ATTENTION/CONCENTRATION: Yes attention grossly intact Skin: COMMON NORMALS: no rashes or lesions noted GENERAL SKIN EXAM: no rashes or lesions noted Urinary Catheter Management: Hendrickson: Cath Placed During This Visit: yes, but has since been removed by the nurse Reason for Continuing Indwelling Catheter: Required Immobilization for Trauma or Surgery or Anesthesia Urinary Catheter Date of Insertion: 02/28/25 Urinary Catheter Time of Insertion: 07:40 Date Urinary Catheter Removed: 03/01/25 Time Urinary Catheter Discontinued: 05:57 Data 03/01/25 05:19 A&P Assessment and plan 1. Primary osteoarthritis of left knee: Patient is status post left total knee arthroplasty. Attempts were made to work with physical therapy, but she has had some postoperative hypotension. Patient will have her blood pressure medications held. She is given a small bolus and is advised to work with physical therapy as tolerated. She is seen with her daughter in the room. Her daughter has some concerns and these are addressed and questions were answered. Plan is that the patient will spend an additional night in the hospital for monitoring of blood pressure and aggressive physical therapy tomorrow. 2. Acute blood loss as cause of postoperative anemia: Patient has had some difficulty working with physical therapy today secondary to orthostatic blood pressures. When she is seen in her room, she is sitting up and pressure appears stable. PDMP PDMP Reviewed: Not Reviewed Attestations 2 Medical Necessity Statement*: Ongoing care following left total knee arthroplasty with postoperative anemia. Coding Level of Care Code Acute Code for Chg Fwd Diagnoses Primary osteoarthritis of left knee M17.12 Acute blood loss as cause of postoperative anemia D62
--- NOTE | 2025-03-01 17:39 | CTR_ITS ---
PROCEDURE INFORMATION: Exam: CT Head Without Contrast Exam date and time: 03/01/2025 9:43 PM Age: 79 years old Clinical indication: Altered mental status/memory loss; Additional info: AMS TECHNIQUE: Imaging protocol: Computed tomography of the head without contrast. Radiation optimization: All CT scans at this facility use at least one of these dose optimization techniques: automated exposure control; mA and/or kV adjustment per patient size (includes targeted exams where dose is matched to clinical indication); or iterative reconstruction. COMPARISON: CT sinus wo con* [id number] 08/04/2024 1:10 PM RADIATION DOSE METRICS: Total DLP (mGy-cm): 1073.93 FINDINGS: Brain: No acute intra-axial hemorrhage. No masses. Normal cotto-white matter differentiation. No midline shift or mass effect. Mild patchy hypodensity in hemispheric white matter bilaterally most likely due to chronic microangiopathy. There is mild diffuse cerebral atrophy present, consistent with this patient's age. Cerebral ventricles: No ventriculomegaly. Paranasal sinuses: Visualized sinuses are unremarkable. No fluid levels. Mastoid air cells: Visualized mastoid air cells are well aerated. Bones: Unremarkable. No acute fracture. Soft tissues: Unremarkable. CT/CT head wo con* [id number] IMPRESSION: No acute intracranial abnormality.
--- NOTE | 2025-03-01 19:04 | P.CONIM_ITS ---
Providers/Reason For Consult 2 Consulting Physician/Specialty*: Hospitalist Service Reason for Consult*: Medical management Attending Physician: Rosalinda Wallis MD Primary Care Provider: ANDREW Paulino History of Present Illness History of Present Illness Yael Lisa is a 79 year old female with pmhx of HTN, HLD, insomnia, appendectomy, lymphoma, osteoarthritis, and left total knee arthroplasty (02/28/25) presenting with complaints of altered mental status in the setting of status post knee surgery. ?Patient had scheduled left knee arthroplasty yesterday, 02/28/2025.? Last night she had a bout of nausea and vomiting after taking tramadol.? This morning, she was acting like her normal self but had off and on spells of sudden nausea and vomiting, especially when changing position.? This morning, her blood pressure was 112 systolic, and after morning medication she dropped to the 80s-90s systolic.? Blood pressures have been soft but improved with fluid resuscitation. ?Hospitalist Service was consulted to assist with medical management.? Patient had Zofran and Reglan on board that helped but began feeling nauseous again and a dose of Compazine was added.? Added to existing orders; CMP, head CT, B12, Phos, TSH, urinalysis, bed rest, and PT/OT assessment when appropriate.? Beta-blockers held in setting of hypotension.? Will follow for further evaluation and treatment. Review of Systems 2 General: Reports: ROS unobtainable due to mental status Medications/Allergies Home Medications ?Medication ?Instructions ?Recorded ?Confirmed ?Last Taken ?Type docusate sodium 100 mg capsule 100 mg PO BID #14 caps 05/17/24 02/27/25 02/27/25 Rx (Colace) lorazepam 1 mg tablet 0.5 - 1 mg (0.5 - 1 x 1 mg) PO Q6H 06/15/24 02/27/25 Unknown Rx PRN severe nausea #30 tabs lidocaine-prilocaine 2.5 %-2.5 % 1 applic topical .COM PLEX #30 grams 06/16/24 02/27/25 02/27/25 Rx topical cream ascorbic acid (vitamin C) 1,000 mg 1 g PO DAILY 02/27/25 02/27/25 History tablet (Vitamin C) cholecalciferol (vitamin D3) 125 125 mcg PO DAILY 05/2402/27/25 02/27/25 History mcg (5,000 unit) tablet (Vitamin D3) flaxseed oil 1,000 mg capsule 1,000 mg PO DAILY 02/27/25 02/27/25 History magnesium 250 mg tablet 250 mg PO DAILY 06/29/2404/2302/27/25 History polyethylene glycol 3350 17 4 g PO DAILY constipation 06/29/24 02/27/25 06/28/24 History gram/dose oral powder (Miralax) vitamin B complex 0.5 tab PO DAILY 06/29/2402/27/25 History sodium di- and 1 tab PO BID 15 days #30 tab s 07/07/24 02/27/25 02/27/25 Rx monophosphate-potassium phos monobasic 250 mg tablet (C-Ecpg-Hzyldkt) bisoprolol fumarate 10 mg tablet 10 mg PO DAILY #90 ta bs 01/30/25 02/27/25 02/27/25 Rx hydrochlorothiazide 25 mg tablet 25 mg PO DAILY #90 ta bs 01/30/25 02/27/25 02/27/25 Rx amitriptyline 25 mg tablet 25 mg PO DAILY 02/27/2504/2302/27/25 History atorvastatin 20 mg tablet 20 mg PO DAILY 02/27/2504/2302/27/25 History Allergies Allergy/AdvReac Type Severity Reaction Status Date / Time azithromycin Allergy Unknown Verified 02/27/25 15:11 Opioids - Morphine Analogues Allergy Unknown Verified 02/27/25 15:11 Current Medications Generic Name Dose Route Start Last Admin Trade Name Freq PRN Reason Stop Dose Admin Amitriptyline HCl 25 mg 03/01/25 05:00 03/01/25 04:12 Amitriptyline 25 Mg Tablet PO 25 mg DAILY NEISHA Administration Aspirin 325 mg 03/01/25 05:00 03/01/25 04:12 Aspirin 325 Mg Ec Tablet PO 325 mg DAILY NEISHA Administration Atorvastatin Calcium 20 mg 03/01/25 05:00 03/01/25 04:11 Atorvastatin 20 Mg Tablet PO 20 mg DAILY NEISHA Administration Bisoprolol Fumarate 10 mg 03/01/25 05:00 03/01/25 04:13 Bisoprolol 5 Mg Tablet PO 10 mg On Hold: 03/01/25 18:44 DAILY NEISHA Administration Calcium Carbonate 1,000 mg 02/28/25 17:00 03/01/25 17:38 Calcium Carbonate 500 Mg Chew Tablet PO 1,000 mg BID NEISHA Administration Chlorhexidine Gluconate 30 ml 02/28/25 11:12 03/01/25 17:39 Chlorhexidine Gluconate 0.12% Btl 473 Ml MUCOUS MEM Not Given QID NEISHA Docusate Sodium 100 mg 02/28/25 17:00 03/01/25 17:39 Docusate Sodium 100 Mg Capsule PO 100 mg BID NEISHA Administration Hydrochlorothiazide 25 mg 03/01/25 05:00 03/01/25 04:11 Hydrochlorothiazide 25 Mg Tablet PO 25 mg DAILY [facility] Administration Ketorolac Tromethamine 15 mg 02/28/25 18:59 03/01/25 05:32 Ketorolac 30 Mg/Ml Inj IVP 03/02/25 00:01 15 mg Q6H PRN Administration MODERATE PAIN Multivitamins Therapeutic 1 tab 03/01/25 05:00 03/01/25 04:12 Multivitamin Therapeutic Tablet PO 1 tab DAILY [facility] Administration Mupirocin 1 applic 02/28/25 17:00 03/01/25 17:39 Mupirocin Oint 22 Gm NASAL 03/05/25 16:59 Not Given BID [facility] Protocol Ondansetron HCl 4 mg 02/28/25 11:12 03/01/25 14:55 Ondansetron 2 Mg/Ml Sdv 2 Ml IVP 4 mg Q6H PRN Administration NAUSEA AND VOMITING Polyethylene Glycol 17 gm 03/01/25 05:00 03/01/25 04:14 Polyethylene Glycol 3350 Pkt 17 Gm PO 17 gm DAILY [facility] Administration Polysaccharide Iron Complex 150 mg 02/28/25 18:00 03/01/25 08:43 Iron Polysaccharide Complex 150 Mg Capsule PO 150 mg BIDWM [facility] Administration Senna/Docusate Sodium 2 tab 02/28/25 17:00 03/01/25 17:38 Sennosides-Docusate Tablet PO 2 tab BID NEISHA Administration Vitamin D 1,000 unit 03/01/25 05:00 03/01/25 04:12 Cholecalciferol (Vitamin D3) 1,000 Unit Tablet PO 1,000 unit DAILY NEISHA Administration PFSH Acute 2 PFSH: Medical History Insomnia Hypertension Hyperlipidemia Surgical History History of appendectomy History of tubal ligation Family History Mother , at age 87 Hypertension Congestive heart failure (CHF) Father , at age 75 Hypertension Congestive heart failure (CHF) Social History Smoking and tobacco/nicotine status: former use of tobacco/nicotine Quit status (tobacco/nicotine): has quit using Year quit tobacco: 13 years ago Alcohol intake: never Substance/Drug Use: never Adopted: No Caregiver/support person: No Lives independently: No Household members: spouse Marital status: service: No Current occupational status: retired Sexually active: Yes Do you think of yourself as: Straight/Heterosexual Current gender identity: Female Vitals/I&O/Wt Last Vital Signs Temp 97.9 F 03/01/25 07:21 Pulse 80 03/01/25 07:21 Resp 16 03/01/25 07:21 BP 94/50 03/01/25 08:22 Pulse Ox 92 03/01/25 07:21 O2 Del Method Room Air 03/01/25 03:18 O2 Flow Rate 2 02/28/25 11:55 03/01/25 03/01/25 03/01/25 06:59 14:59 22:59 Intake Total 100 / 1890 2220 / 2220 250 / 2470 Output Total 400 / 1455 200 / 200 Balance -300 / 435 2220 / 2220 50 / 2270 Weight last 48 hrs Weight 89.868 kg Weight 89.63 kg Weight 79.379 kg Physical Exam 2 Const: COMMON NORMALS: no acute distress, average body habitus, patient oriented x3 and alert GENERAL APPEARANCE: cooperative and comfortable O RIENTATION/CONSCIOUSNESS: Yes awake Eye: GENERAL EYE: appearance normal, both eyes and all related structures Chest: COMMONS NORMALS: normal inspection of the chest Resp: COMMON NORMALS: normal respiratory effort EFFORT & INSPECTION: Yes symmetric chest movement Extremity: LEFT LOWER EXTREMITY: Yes knee joint (s/p operation with dressing) Neuro: COMMON NORMALS: patient oriented x3 SENSORIUM/ORIENTATION: Yes alert Psych: COMMON NORMALS: mental status grossly normal APPEARANCE: Yes grossly normal ATTITUDE: Yes calm ATTENTION/CONCENTRATION: Yes attention grossly intact Urinary Catheter Management: Hendrickson: Cath Placed During This Visit: yes, but has since been removed by the nurse Reason for Continuing Indwelling Catheter: Required Immobilization for Trauma or Surgery or Anesthesia Urinary Catheter Date of Insertion: 02/28/25 Urinary Catheter Time of Insertion: 07:40 Date Urinary Catheter Removed: 03/01/25 Time Urinary Catheter Discontinued: 05:57 Data 03/01/25 05:19 A&P Assessment and plan 1. AMS (altered mental status): With generalized weakness, poor urine output, and decreased appetite Hypotension vs. post anesthesia Head CT without contrast pending Labs - ammonia, b12, tsh, phos PT and OT tomorrow Urinalysis pending Fluid resuscitation I&O, strict Fall risk precautions and bedrest, up with assist 2. Status post total left knee replacement: In setting of severe degenerative arthritis Knee pain refractory to cortisone injections and anti-inflammatories Drug allergies to opioids Pain management ? Toradol switched to diclofenac Incentive spirometry Post op dressing wound care per primary team 3. Acute blood loss as cause of postoperative anemia: HGB 9.7 Ferritin, TIBC Transfuse to keep HGB > 7 4. Nausea & vomiting: Antiemetics Advance diet as tolerated Strict I&O 5. Hypotension, unspecified: S/p knee surgery BP 80s and 90s systolic, HR 80 Vital monitoring Hold Bisprolol in the setting of BP 88/44 6. Diffuse large B-cell lymphoma: S/p chemo therapy Left upper chest port still in place for 6 months Follows [facility] Oncologists PDMP PDMP Reviewed: Not Reviewed Diagnoses AMS (altered mental status) R41.82 Status post total left knee replacement Z96.652 Acute blood loss as cause of postoperative anemia D62 Nausea & vomiting R11.2 Hypotension, unspecified I95.9 Diffuse large B-cell lymphoma C83.30
[2025-03-01 20:00] VITALS: BP 110/58; PULSE 76; RESP 17; TEMP 36.9; O2SAT 95
--- NOTE | 2025-03-01 20:48 | CTR_ITS ---
PROCEDURE INFORMATION: Exam: CTA Chest With Contrast Exam date and time: 03/01/2025 9:47 PM Age: 79 years old Clinical indication: Other: Hypoxia TECHNIQUE: Imaging protocol: Computed tomographic angiography of the chest with contrast. Exam focused on the arteries. 3D rendering (Not supervised by radiologist): MIP and/or 3D reconstructed images were created by the technologist. Radiation optimization: All CT scans at this facility use at least one of these dose optimization techniques: automated exposure control; mA and/or kV adjustment per patient size (includes targeted exams where dose is matched to clinical indication); or iterative reconstruction. Contrast material: [id number]; Contrast volume: 100 ml; Contrast route: INTRAVENOUS (IV); COMPARISON: CT angio chest PE protcl [id number] 06/29/2024 11:21 AM RADIATION DOSE METRICS: Total DLP (mGy-cm): 421.01 FINDINGS: Tubes, catheters and devices: A left subclavian approach implanted port catheter is identified. Pulmonary arteries: No acute pulmonary embolus is identified. Aorta: Mild atherosclerotic changes of the thoracic aorta and its major branch vessels is noted. Lungs: Centrilobular emphysematous changes are present. Stable bibasilar pulmonary scarring is present. No confluent consolidation. Pleural spaces: No pleural effusion. No pneumothorax is seen. Heart: Unremarkable. No cardiomegaly. No pericardial effusion. Coronary arteries: Moderate atherosclerosis of the left anterior descending artery (LAD) is present. Lymph nodes: Calcified mediastinal and/or/hilar lymph nodes consistent with prior granulomatous disease. No axillary, supraclavicular, mediastinal, or hilar lymphadenopathy is noted. Stomach: Hyperdense material in the dependent gastric lumen, favored to represent ingested materials in the absence of provided history of upper GI hemorrhage. Bones/joints: Unremarkable. No acute fracture. Soft tissues: Unremarkable. CT/CT angio chest PE protcl [id number] IMPRESSION: 1. No acute pulmonary embolus or evidence of acute right heart strain. 2. Moderate atherosclerosis of the LAD coronary artery. 3. Emphysema. 4. Otherwise, no acute process in the chest is noted to explain the patient's symptoms. COMMENTS: The presence of pulmonary emphysema on CT is an independent risk factor for lung cancer. In the absence of a history or active diagnosis of lung cancer, it is recommended that this patient with emphysema be evaluated for enrollment in a low dose CT lung cancer screening program.
[2025-03-01 21:01] LABS: Alanine Aminotransferase 12 U/L (0-33); Albumin Level 3.3 g/dL (3.5-5.2); Alkaline Phosphatase 106 U/L (35-105); Anion Gap 12.0 (5-19); Aspartate Amino Transferase 28 U/L (0-32); Blood Urea Nitrogen 18 mg/dL (8-23); Calcium 8.9 mg/dL (8.5-10.5); Carbon Dioxide 27 mmol/L (22-29); Chloride 100 mmol/L (98-107); Globulin 2.5 g/dL (1.3-4.6); Glucose 130 mg/dL (65-115); Iron 21 ug/dL (37-145); Osmolality Calculated 284 mOsm/kg (285-295); Potassium 4.0 mmol/L (3.5-5.1); Sodium 135 mmol/L (136-145); Total Iron Binding Capacity 185 mcg/dl; Total Protein 5.8 g/dL (6.6-8.7); Unsaturated Iron Binding 164 ug/dL (112-347)
[2025-03-01 21:10] LABS: Ammonia 28 umol/L (11-51)
[2025-03-01 21:14] LABS: Vitamin B12 385 pg/mL (232-1245)
[2025-03-01 21:34] LABS: ABG PCO2 46.9 mmHg (35-45); ABG PH Result 7.39 (7.35-7.45); Arterial Blood Gas Hematocrit 30.2 % (37-47); Blood Gas Allen Test Pos; Blood Gas LPM 4.0 %; Blood Gas Operator Identificat gerca; Blood Gas Sample Site Radial, right; Blood Gas Sample Type Arterial; HCO3 ABG 28.4 mmol/L (22-26); PO2 ABG 81.4 mmHg (80.0-100.0); PO2 FiO2 Ratio Arterial Blood 226
[2025-03-01] MEDS: iohexol 350 mg/mL 500 mL Btl (per mL) IV (21:49)
--- NOTE | 2025-03-01 22:20 | PC.NURSE ---
Pt refused Ferrex scheduled med tonight. Pt stated she did not want to take this medication at this time, states she thinks it upsets her belly. Daughter at bedside also asked that I do not give it tonight. Education provided on the purpose of this med and potential effects if not taken. Pt verbalized understanding. Dr. Vail notified of refusal.
[2025-03-01] MEDS: heparin drip 25,000 UNIT/500 ML PREMIX 20.62 UNIT IV (23:46)
[2025-03-01] MEDS: heparin 5,000 unit/mL INJ 1 mL 4500 UNIT IVP (23:47)
[2025-03-02] VITALS: BP 107/53; PULSE 68; RESP 17; TEMP 36.9; O2SAT 98
[2025-03-02 00:56] LABS: Thyroid Stimulating Hormone 0.46 uIU/mL (0.27-4.20)
[2025-03-02 01:06] LABS: Ferritin 255 ng/mL (15-150); Magnesium 2.0 mg/dL (1.7-2.3)
--- NOTE | 2025-03-02 01:56 | PC.NURSE ---
At around 2100, this pt was found to have increased AMS. Vitals obtained showing SPO2 of 55% on room air. Pt placed on 6L NC, with improvement noted. Pt was gradually weened back to room air; however approximately 10 minutes later, SPO2 decreased to 80%. Pt placed back on 4L NC with improvement. Dr. Vail notified of mental status and oxygen requirements. said he will review chart and put in orders for the pt.
[2025-03-02 04:00] VITALS: BP 126/58; PULSE 77; RESP 17; TEMP 36.8; O2SAT 95
[2025-03-02 05:10] LABS: Platelet Count 165 10^3/cmm (157-399)
[2025-03-02 05:41] LABS: Alanine Aminotransferase 11 U/L (0-33); Albumin Level 3.0 g/dL (3.5-5.2); Alkaline Phosphatase 103 U/L (35-105); Anion Gap 12.6 (5-19); Aspartate Amino Transferase 33 U/L (0-32); Blood Urea Nitrogen 14 mg/dL (8-23); Calcium 8.7 mg/dL (8.5-10.5); Carbon Dioxide 25 mmol/L (22-29); Chloride 102 mmol/L (98-107); Globulin 2.4 g/dL (1.3-4.6); Glucose 101 mg/dL (65-115); Osmolality Calculated 283 mOsm/kg (285-295); Potassium 3.6 mmol/L (3.5-5.1); Sodium 136 mmol/L (136-145); Total Protein 5.4 g/dL (6.6-8.7)
[2025-03-02 05:48] LABS: Glucose Urine UA Negative (Normal); Nitrate Urine Negative (Negative)
[2025-03-02] MEDS: sennosides-docusate Tablet 2 TAB PO ×2 (05:48→16:56)
[2025-03-02] MEDS: ATORVASTATIN 20 MG TABLET PO (05:49)
[2025-03-02] MEDS: multivitamin therapeutic Tablet 1 TAB PO (05:49)
[2025-03-02] MEDS: polyethylene glycol 3350 Pkt 17 gm PO (05:50)
[2025-03-02] MEDS: mupirocin oint 22 gm 1 APPLIC NASAL ×2 (05:53→16:58)
[2025-03-02] MEDS: chlorhexidine gluconate 0.12% Btl 473 mL 30 ML MUCOUS MEM ×4 (05:53→21:22)
[2025-03-02 05:58] LABS: Specific Gravity, Urine 1.054 (1.005-1.030)
[2025-03-02 07:31] VITALS: BP 122/62; PULSE 81; RESP 18; TEMP 36.6; O2SAT 95
[2025-03-02 08:23] LABS: Partial Thromboplastin Time 227.2 SECONDS (23.9-36.7)
--- NOTE | 2025-03-02 08:59 | PM.MISC ---
Miscellaneous Note Purpose of Documentation: RN notification this morning that patient's PTT resulted critical at 227. Heparin has been paused and patient will have a redraw in 2 hours. This is just a note to clarify that although the order is active the heparin drip has been paused.
[2025-03-02 11:18] LABS: Partial Thromboplastin Time 51.5 SECONDS (23.9-36.7)
[2025-03-02 11:26] VITALS: BP 132/67; PULSE 87; RESP 17; TEMP 36.6; O2SAT 94
[2025-03-02 15:42] VITALS: BP 146/71; PULSE 94; RESP 17; TEMP 36.7; O2SAT 96
--- NOTE | 2025-03-02 17:08 | PC.OT ---
OT TREATMENT HELD IN A.M. DUE TO NEW DX OF PLEURAL EFFUSIONS. ATTEMPTED IN P.M. BUT PATIENT AND FAMILY REQUEST REST.
--- NOTE | 2025-03-02 18:00 | P.PN_ITS ---
Subjective 2 Subjective: Yael Lisa is a 79 year old female with pmhx of HTN, HLD, insomnia, appendectomy, lymphoma, osteoarthritis, and left total knee arthroplasty (02/28/25) presenting with complaints of altered mental status in the setting of status post knee surgery. ?Patient had scheduled left knee arthroplasty yesterday, 02/28/2025.? Last night she had a bout of nausea and vomiting after taking tramadol.? This morning, she was acting like her normal self but had off and on spells of sudden nausea and vomiting, especially when changing position.? This morning, her blood pressure was 112 systolic, and after morning medication she dropped to the 80s-90s systolic.? Blood pressures have been soft but improved with fluid resuscitation. ?Hospitalist Service was consulted to assist with medical management.? Patient had Zofran and Reglan on board that helped but began feeling nauseous again and a dose of Compazine was added.? Added to existing orders; CMP, head CT, B12, Phos, TSH, urinalysis, bed rest, and PT/OT assessment when appropriate.? Beta-blockers held in setting of hypotension.? Will follow for further evaluation and treatment. 03/02/25 Patient is much improved and her mentation and no longer has slow response times. She is sitting at the edge of the bed eating dinner and her appetite has increased. Daughter at bedside reports that patient is back to baseline. Heparin drip was started and then paused after a high PTT result. It was eventually turned off and switched to Eliquis. Patient to stay for less than 2 midnights secondary to altered mental status and hypotension improving in the setting of postop knee surgery. Vitals/I&O/Wt Last Vital Signs Temp 97.9 F 03/02/25 07:31 Pulse 81 03/02/25 07:31 Resp 18 03/02/25 07:31 BP 122/62 03/02/25 07:31 Pulse Ox 95 03/02/25 07:31 O2 Del Method Nasal Cannula 03/02/25 07:31 O2 Flow Rate 6 03/02/25 04:00 03/01/25 03/02/25 03/02/25 22:59 06:59 14:59 Intake Total 250 / 2470 1184.549 / 1184.549 Output Total 200 / 200 600 / 800 Balance 50 / 2270 -600 / 1670 1184.549 / 1184.549 Weight last 48 hrs Weight 87.543 kg Weight 85.865 kg Weight 89.868 kg Weight 89.63 kg Physical Exam 2 Const: COMMON NORMALS: no acute distress, average body habitus, patient oriented x3 and alert GENERAL APPEARANCE: cooperative and comfortable O RIENTATION/CONSCIOUSNESS: Yes awake HENMT: COMMON NORMALS: normocephalic and atraumatic HEAD & SCALP: n ormocephalic and atraumatic Eye: GENERAL EYE: appearance normal, both eyes and all related structures Chest: COMMONS NORMALS: normal inspection of the chest Resp: COMMON NORMALS: normal respiratory effort EFFORT & INSPECTION: Yes able to speak in complete sentences and Yes symmetric chest movement Neuro: COMMON NORMALS: patient oriented x3 SENSORIUM/ORIENTATION: Yes alert Psych: COMMON NORMALS: mental status grossly normal APPEARANCE: Yes grossly normal ATTITUDE: Yes calm and Yes engaged ATTENTION/CONCENTRATION: Yes attention grossly intact Skin: COMMON NORMALS: no rashes or lesions noted GENERAL SKIN EXAM: no rashes or lesions noted Urinary Catheter Management: Hendrickson: Cath Placed During This Visit: yes, but has since been removed by the nurse Reason for Continuing Indwelling Catheter: Required Immobilization for Trauma or Surgery or Anesthesia Urinary Catheter Date of Insertion: 02/28/25 Urinary Catheter Time of Insertion: 07:40 Date Urinary Catheter Removed: 03/01/25 Time Urinary Catheter Discontinued: 05:57 Data 03/02/25 04:23 03/02/25 04:23 A&P PDMP PDMP Reviewed: Not Reviewed Attestations 2 Medical Necessity Statement*: Patient to stay for 2 nights or greater secondary to altered mental status and hypotension in the setting of being postop knee surgery.
[2025-03-02 18:06] LABS: Partial Thromboplastin Time 79.3 SECONDS (23.9-36.7)
--- NOTE | 2025-03-02 18:09 | P.PN_ITS ---
Subjective 2 Subjective: Patient became hypoxic overnight, and she was sent to radiology for CT angio of the chest. Initially, this study appears to have been read as negative, but subsequent addendum reports isolated posterior medial subsegmental pulmonary embolus in the right lower lobe. This has been treated with IV heparin. Medications: Reviewed: Yes Vitals/I&O/Wt Last Vital Signs Temp 98.1 F 03/02/25 15:42 Pulse 94 03/02/25 15:42 Resp 17 03/02/25 15:42 BP 146/71 03/02/25 15:42 Pulse Ox 96 03/02/25 15:42 O2 Del Method Nasal Cannula 03/02/25 15:42 O2 Flow Rate 6 03/02/25 04:00 03/02/25 03/02/25 03/02/25 06:59 14:59 22:59 Intake Total 1664.549 / 1664.549 Output Total 600 / 800 1400 / 1400 Balance -600 / 1670 264.549 / 264.549 Weight last 48 hrs Weight 193 lb Weight 189 lb 4.8 oz Weight 198 lb 2 oz Physical Exam 2 Const: COMMON NORMALS: no acute distress, average body habitus, patient oriented x3 and alert GENERAL APPEARANCE: cooperative and comfortable O RIENTATION/CONSCIOUSNESS: Yes awake HENMT: COMMON NORMALS: normocephalic and atraumatic HEAD & SCALP: n ormocephalic and atraumatic Eye: GENERAL EYE: appearance normal, both eyes and all related structures Chest: COMMONS NORMALS: normal inspection of the chest Resp: COMMON NORMALS: normal respiratory effort EFFORT & INSPECTION: Yes able to speak in complete sentences and Yes symmetric chest movement Extremity: LEFT LOWER EXTREMITY: Yes knee joint (Dressing is dry and intact) Left knee: Yes inspection (Slight swelling secondary to heparin use), Yes ROM (Not evaluated) and Yes neurovascular exam (Intact distally) Neuro: COMMON NORMALS: patient oriented x3 SENSORIUM/ORIENTATION: Yes alert Psych: COMMON NORMALS: mental status grossly normal APPEARANCE: Yes grossly normal ATTITUDE: Yes calm and Yes engaged ATTENTION/CONCENTRATION: Yes attention grossly intact Skin: COMMON NORMALS: no rashes or lesions noted GENERAL SKIN EXAM: no rashes or lesions noted Urinary Catheter Management: Hendrickson: Cath Placed During This Visit: yes, but has since been removed by the nurse Reason for Continuing Indwelling Catheter: Required Immobilization for Trauma or Surgery or Anesthesia Urinary Catheter Date of Insertion: 02/28/25 Urinary Catheter Time of Insertion: 07:40 Date Urinary Catheter Removed: 03/01/25 Time Urinary Catheter Discontinued: 05:57 Data 03/02/25 04:23 03/02/25 04:23 A&P Assessment and plan 1. Primary osteoarthritis of left knee: Patient is status post left total knee arthroplasty. Last evening, she became somewhat hypoxic and a CT angiogram demonstrated a subsegmental pulmonary embolism. She has been treated with IV heparin. She is sitting up eating and doing well. She will be transition to [facility] as heparin has been stopped. Plans will be that she will hopefully be able to be discharged tomorrow to home. 2. Acute blood loss as cause of postoperative anemia: PDMP PDMP Reviewed: Not Reviewed Attestations 2 Medical Necessity Statement*: Patient requires ongoing hospitalization for treatment of pulmonary embolism Coding Level of Care Code Acute Code for Chg Fwd Diagnoses Primary osteoarthritis of left knee M17.12 Acute blood loss as cause of postoperative anemia D62
[2025-03-02 20:00] VITALS: BP 149/74; PULSE 100; RESP 16; TEMP 36.6; O2SAT 94
[2025-03-02] MEDS: APIXABAN 2.5 MG TABLET PO (21:21)
[2025-03-03] VITALS (8 sets, daily range): BP systolic 109–151; BP diastolic 62–87; PULSE 85–98; RESP 14–18; TEMP 36.3–36.7; O2SAT 86–98
[2025-03-03] MEDS: ATORVASTATIN 20 MG TABLET PO (04:58)
[2025-03-03] MEDS: multivitamin therapeutic Tablet 1 TAB PO (04:58)
[2025-03-03] MEDS: mupirocin oint 22 gm 1 APPLIC NASAL (04:59)
[2025-03-03] MEDS: chlorhexidine gluconate 0.12% Btl 473 mL 30 ML MUCOUS MEM ×2 (04:59→10:51)
[2025-03-03 05:35] LABS: Platelet Count 168 10^3/cmm (157-399)
[2025-03-03 05:59] LABS: Alanine Aminotransferase 16 U/L (0-33); Albumin Level 3.1 g/dL (3.5-5.2); Alkaline Phosphatase 100 U/L (35-105); Anion Gap 7.6 (5-19); Aspartate Amino Transferase 33 U/L (0-32); Blood Urea Nitrogen 8 mg/dL (8-23); Calcium 8.3 mg/dL (8.5-10.5); Carbon Dioxide 35 mmol/L (22-29); Chloride 102 mmol/L (98-107); Globulin 2.4 g/dL (1.3-4.6); Glucose 94 mg/dL (65-115); Osmolality Calculated 290 mOsm/kg (285-295); Potassium 3.6 mmol/L (3.5-5.1); Sodium 141 mmol/L (136-145); Total Protein 5.5 g/dL (6.6-8.7)
--- NOTE | 2025-03-03 08:04 | P.PN_ITS ---
Subjective 2 Subjective: Patient is a very pleasant 79-year-old female seen and examined at bedside on hospital rounds this morning. Patient sitting up in bedside chair, denies shortness of breath or chest pain, states mild left knee pain but otherwise has no complaints. Patient had event with documented PE and was initiated on heparin drip and transitions to oral Eliquis. Plans to discharge home today with appropriate Eliquis dosing 10 mg p.o. twice daily x 7 days and then 5 mg p.o. twice daily. Advised patient for chronic anticoagulation management she will need to follow-up with her PCP, patient verbalized understanding. Consulted with orthopedic surgeon Dr. Wallis who will place discharge instructions and continued pain management prescription at discharge, hospitalist team managing Eliquis at discharge. Vitals/I&O/Wt Last Vital Signs Temp 98.0 F 03/03/25 07:34 Pulse 85 03/03/25 07:34 Resp 14 03/03/25 07:34 BP 110/62 03/03/25 07:34 Pulse Ox 96 03/03/25 07:34 O2 Del Method Nasal Cannula 03/03/25 07:34 O2 Flow Rate 5 03/03/25 04:00 03/02/25 03/03/25 03/03/25 22:59 06:59 14:59 Intake Total 1277.5 / 2942.049 Output Total 600 / 2000 Balance 1277.5 / 1542.049 -600 / 942.049 Weight last 48 hrs Weight 88.451 kg Weight 87.543 kg Weight 85.865 kg Physical Exam 2 Const: COMMON NORMALS: no acute distress, average body habitus, patient oriented x3 and alert GENERAL APPEARANCE: cooperative and comfortable O RIENTATION/CONSCIOUSNESS: Yes awake HENMT: COMMON NORMALS: normocephalic and atraumatic HEAD & SCALP: n ormocephalic and atraumatic Eye: GENERAL EYE: appearance normal, both eyes and all related structures Chest: COMMONS NORMALS: normal inspection of the chest Resp: COMMON NORMALS: normal respiratory effort EFFORT & INSPECTION: Yes able to speak in complete sentences and Yes symmetric chest movement Extremity: LEFT LOWER EXTREMITY: Yes knee joint (Dressing is dry and intact) Left knee: Yes inspection, Yes ROM (Not evaluated) and Yes neurovascular exam (Intact distally) Neuro: COMMON NORMALS: patient oriented x3 SENSORIUM/ORIENTATION: Yes alert Psych: COMMON NORMALS: mental status grossly normal APPEARANCE: Yes grossly normal ATTITUDE: Yes calm and Yes engaged ATTENTION/CONCENTRATION: Yes attention grossly intact Skin: COMMON NORMALS: no rashes or lesions noted GENERAL SKIN EXAM: no rashes or lesions noted Urinary Catheter Management: Hendrickson: Cath Placed During This Visit: yes, but has since been removed by the nurse Reason for Continuing Indwelling Catheter: Required Immobilization for Trauma or Surgery or Anesthesia Urinary Catheter Date of Insertion: 02/28/25 Urinary Catheter Time of Insertion: 07:40 Date Urinary Catheter Removed: 03/01/25 Time Urinary Catheter Discontinued: 05:57 Data 03/03/25 05:24 03/03/25 05:24 A&P Assessment and plan 1. Status post total left knee replacement: - In setting of severe degenerative arthritis - Management and discharge per Orthopedic surgeon - Pain management ? Toradol switched to diclofenac - Incentive spirometry - Post op dressing wound care per primary team 2. Pulmonary emboli: - CTA 03/01 with isolated posteromedial subsegmental pulmonoary embolus, no evidence of acute right heart strain. - Was on heparin gtt transitioned to oral Eliquis - Discharges with continued Eliquis, outpatient management per PCP - Oxygen walk test pending 3. AMS (altered mental status): - Resolved 4. Acute blood loss as cause of postoperative anemia: - HGB 9.7, pending repeat - Ferritin, TIBC - Transfuse to keep HGB > 7 5. Nausea & vomiting: - Resolved 6. Hypotension, unspecified: - Resolved 7. Diffuse large B-cell lymphoma: S/p chemo therapy Left upper chest port still in place for 6 months Follows [facility] Oncologists Plan: 03/03: Plan is to discharge home with continued outpatient management per orthopedic surgeon/attending Dr. Wallis. Patient continues oral Eliquis, starter pack prescribed at discharge and will transition to 5 mg p.o. twice daily and continued outpatient anticoagulation management per her primary care provider. Greatly appreciate case management and coordination of discharge planning, providing the patient with coupon for Eliquis, and outpatient follow-up. Patient is advised to follow-up with primary care provider in 1 to 3 days of discharge, orthopedic surgeon within 2 weeks. PDMP PDMP Reviewed: Not Reviewed Attestations 2 Medical Necessity Statement*: Expected discharge today, management per attending. Coding Level of Care Code 88433 Diagnoses Status post total left knee replacement Z96.652 Pulmonary emboli I26.99 AMS (altered mental status) R41.82 Acute blood loss as cause of postoperative anemia D62 Nausea & vomiting R11.2 Hypotension, unspecified I95.9 Diffuse large B-cell lymphoma C83.30
[2025-03-03] MEDS: APIXABAN 2.5 MG TABLET PO (08:24)
[2025-03-03 10:58] LABS: Hematocrit 26.0 % (36-47); Hemoglobin 8.50 g/dL (11.27-16.99); Mean Corpuscular HGB Conc 32.7 g/dL (30-55); Mean Corpuscular Hemoglobin 32.2 pg (27-33); Mean Corpuscular Volume 98.5 fl (85-98); Nucleated Red Blood Cells % 0 %; Platelet Count 180 10^3/cmm (157-399); Red Blood Count 2.64 10^6/uL (3.85-5.65); White Blood Count 5.77 10^3/uL (3.29-11.43)
--- NOTE | 2025-03-03 13:56 | PC.OT ---
Pt seen for OT treatment session; family member states that pt has no needs at this time and that she is ready to go home. Will attempt again at later time.
--- NOTE | 2025-03-03 14:22 | PM.DCS ---
Discharge Providers Date of Admission: 03/02/25 10:18 Date of Discharge: March 03, 2025 Attending Provider at Admission: Rosalinda Wallis MD Attending Provider at Discharge: Rosalinda Wallis MD Primary Care Provider: ANDREW Paulino Diagnoses at Discharge Discharge Diagnosis 1. Status post total left knee replacement not using cement: 2. AMS (altered mental status): 3. Acute blood loss as cause of postoperative anemia: 4. Nausea & vomitin. Hypotension, unspecified: 6. Diffuse large B-cell lymphoma: Reason for Visit Reason for Visit: M17.12 Brief History: This 79-year-old woman presented with complaints of severe left knee pain causing her issues with activities of daily living. She reported pain up to an 8 of 10 and sometimes at night, the pain will go to a 10 of 10. The patient had nonoperative options such as cortisone injections. She had also used a knee brace and participated in home exercise program. Anti-inflammatories were also of no significant benefit. X-ray images demonstrated severe tricompartmental osteoarthritis. After discussion in the office, the patient wished to proceed with total knee arthroplasty. Risks and complications of surgery were discussed with her, and consents were signed preoperatively in the office. Hospital Course Hospital Course [id number] woman was admitted under initially observation status following left total knee arthroplasty. Postoperatively, the patient had shortness of breath and fatigue. Evaluation demonstrated that the patient had a PE. This was diagnosed with CTA on March 01. She was seen and managed by the hospitalist. At the time of discharge, she was seen in her room and was doing well with no further shortness of breath. Hospitalist assessment plan is as follows: Patient is a very pleasant 79-year-old female seen and examined at bedside on hospital rounds on morning of discharge. Patient sitting up in bedside chair, denies shortness of breath or chest pain, states mild left knee pain but otherwise has no complaints. Patient had event with documented PE and was initiated on heparin drip and transitions to oral Eliquis. Plans to discharge home today with appropriate Eliquis dosing 10 mg p.o. twice daily x 7 days and then 5 mg p.o. twice daily. Advised patient for chronic anticoagulation management she will need to follow-up with her PCP, patient verbalized understanding. Consulted with orthopedic surgeon Dr. Wallis who will place discharge instructions and continued pain management prescription at discharge, hospitalist team managing Eliquis at discharge. Plan: 03/03: Plan is to discharge home with continued outpatient management per orthopedic surgeon/attending Dr. Wallis. Patient continues oral Eliquis, starter pack prescribed at discharge and will transition to 5 mg p.o. twice daily and continued outpatient anticoagulation management per her primary care provider. Greatly appreciate case management and coordination of discharge planning, providing the patient with coupon for Eliquis, and outpatient follow-up. Patient is advised to follow-up with primary care provider in 1 to 3 days of discharge, orthopedic surgeon within 2 weeks. Physical Exam Const: COMMON NORMALS: no acute distress, average body habitus, patient oriented x3 and alert GENERAL APPEARANCE: cooperative and comfortable ORIENTATION/CONSCIOUSNESS: Yes awake HENMT: COMMON NORMALS: normocephalic and atraumatic HEAD & SCALP: normocephalic and atraumatic Eye: GENERAL EYE: appearance normal, both eyes and all related structures Chest: COMMONS NORMALS: normal inspection of the chest Resp: COMMON NORMALS: normal respiratory effort EFFORT & INSPECTION: Yes able to speak in complete sentences and Yes symmetric chest movement Extremity: LEFT LOWER EXTREMITY: Yes knee joint (No significant swelling, dressing dry and intact) Left knee: Yes inspection (Minimal ecchymosis), Yes ROM (Able to straight leg raise) and Yes neurovascular exam (No significant calf pain, intact to motor and sensory function) Neuro: COMMON NORMALS: patient oriented x3 SENSORIUM/ORIENTATION: Yes alert Psych: COMMON NORMALS: mental status grossly normal APPEARANCE: Yes grossly normal ATTITUDE: Yes calm and Yes engaged ATTENTION/CONCENTRATION: Yes attention grossly intact Skin: COMMON NORMALS: no rashes or lesions noted GENERAL SKIN EXAM: no rashes or lesions noted Urinary Catheter Management: Hendrickson: Cath Placed During This Visit: yes, but has since been removed by the nurse Reason for Continuing Indwelling Catheter: Required Immobilization for Trauma or Surgery or Anesthesia Urinary Catheter Date of Insertion: 02/28/25 Urinary Catheter Time of Insertion: 07:40 Date Urinary Catheter Removed: 03/01/25 Time Urinary Catheter Discontinued: 05:57 Discharge Data Studies Completed and Pending Completed Studies During Hospitalization Category Date Time Status CT head wo con* 16341 Routine Cat Scan 03/01/25 17:39 Completed CTA chest [CT angio chest PE protcl 41260] Routine Cat Scan 03/01/25 20:48 Completed XR knee LT 1-2V 32035 Routine Exams 02/28/25 10:33 Completed Pending at discharge Category Date Time Status Comprehensive Metabolic Panel AM LABS Lab 03/04/25 04:00 Ordered Platelet Count Q2D Lab 03/05/25 04:00 Ordered Radiology Impressions Knee X-Ray 02/28/25 10:33 IMPRESSION: 1. Total knee replacement in excellent position. Head CT 03/01/25 17:39 IMPRESSION: No acute intracranial abnormality. Chest CTA 03/01/25 20:48 IMPRESSION: 1. No acute pulmonary embolus or evidence of acute right heart strain. 2. Moderate atherosclerosis of the LAD coronary artery. 3. Emphysema. 4. Otherwise, no acute process in the chest is noted to explain the patient's symptoms. COMMENTS: The presence of pulmonary emphysema on CT is an independent risk factor for lung cancer. In the absence of a history or active diagnosis of lung cancer, it is recommended that this patient with emphysema be evaluated for enrollment in a low dose CT lung cancer screening program. ADDENDUM: 03/01/251 Addendum: This addendum is to address retrospective findings. There is an isolated posteromedial subsegmental pulmonary embolus in the right lower lobe (series 7 images [id number]). Again, no evidence of acute right heart strain is noted. THIS REPORT CONTAINS FINDINGS THAT MAY BE CRITICAL TO PATIENT CARE. The findings were verbally communicated via telephone with KAVITHA MAST at 10:29 PM KNOCKER OFF on 03/01/2025. The findings were acknowledged and understood. Laboratory Results WBC 5.77 10^3/uL (3.29-11.43) 03/03/25 05:24 RBC 2.64 10^6/uL (3.85-5.65) L 03/03/25 05:24 Hgb 8.50 g/dL (11.27-16.99) L 03/03/25 05:24 Hct 26.0 % (36-47) L 03/03/25 05:24 MCV 98.5 fl (85-98) H 03/03/25 05:24 MCH 32.2 pg (27-33) 03/03/25 05:24 MCHC 32.7 g/dL (30-55) 03/03/25 05:24 RDW 13.1 % (12.1-15.1) 03/03/25 05:24 Plt Count 168 10^3/cmm (157-399) 03/03/25 05:24 Plt Count 180 10^3/cmm (157-399) 03/03/25 05:24 MPV 11.0 fL (7.4-10.4) H 03/03/25 05:24 Neut % (Auto) 67.8 % 03/03/25 05:24 Lymph % (Auto) 13.7 % 03/03/25 05:24 [place] % (Auto) 13.2 % 03/03/25 05:24 Eos % (Auto) 4.5 % 03/03/25 05:24 Baso % (Auto) 0.5 % 03/03/25 05:24 Neut # (Auto) 3.91 10^3/uL (1.8-7.7) 03/03/25 05:24 Lymph # (Auto) 0.8 10^3/uL (0.8-4.8) 03/03/25 05:24 [place] # (Auto) 0.8 10^3/uL (0.2-0.9) 03/03/25 05:24 Eos # (Auto) 0.3 10^3/uL (0.0-0.8) 03/03/25 05:24 Baso # (Auto) 0.0 10^3/uL (0.0-0.1) 03/03/25 05:24 Nucleated RBC % (auto) 0 % 03/03/25 05:24 Nucleated RBCs # 0.0 /100WBC 03/03/25 05:24 APTT 79.3 SECONDS (23.9-36.7) H D 03/02/25 17:29 Specimen Type Arterial 03/01/25 21:23 Sample Site Radial, right 03/01/25 21:23 ABG pH 7.39 (7.35-7.45) 03/01/25 21:23 ABG pCO2 46.9 mmHg (35-45) H 03/01/25 21:23 ABG pO2 81.4 mmHg (80.0-100.0) 03/01/25 21:23 ABG PO2/FiO2 Ratio 226 03/01/25 21:23 ABG HCO3 28.4 mmol/L (22-26) H 03/01/25 21:23 ABG Base Excess 3.0 mmol/L (-2.0-2.0) H 03/01/25 21:23 Madhav Test Pos 03/01/25 21:23 Hematocrit 30.2 % (37-47) L 03/01/25 21:23 O2 Delivery Device Nc 03/01/25 21:23 O2 Liters/Min 4.0 % 03/01/25 21:23 FiO2 36.0 % 03/01/25 21:23 Functional Analyst ID gerca 03/01/25 21:23 Sodium 141 mmol/L (136-145) 03/03/25 05:24 Potassium 3.6 mmol/L (3.5-5.1) 03/03/25 05:24 Chloride 102 mmol/L (98-107) 03/03/25 05:24 Carbon Dioxide 35 mmol/L (22-29) H 03/03/25 05:24 Anion Gap 7.6 (5-19) 03/03/25 05:24 BUN 8 mg/dL (8-23) 03/03/25 05:24 Creatinine 0.5 mg/dL (0.5-0.9) 03/03/25 05:24 GFR Calculation Not Reportable 03/03/25 05:24 Glucose 94 mg/dL (65-115) 03/03/25 05:24 Calculated Osmolality 290 mOsm/kg (285-295) 03/03/25 05:24 Calcium 8.3 mg/dL (8.5-10.5) L 03/03/25 05:24 Phosphorus 3.0 mg/dL (2.5-4.5) 03/01/25 20:19 Magnesium 2.0 mg/dL (1.7-2.3) 03/01/25 20:19 Iron 21 ug/dL (37-145) L 03/01/25 20:19 TIBC 185 mcg/dl 03/01/25 20:19 % Saturation 11.3 % (20-50) L 03/01/25 20:19 Unsat Iron Binding 164 ug/dL (112-347) 03/01/25 20:19 Ferritin 255 ng/mL (15-150) H 03/01/25 20:19 Total Bilirubin 0.6 mg/dL (0.15-1.2) 03/03/25 05:24 AST 33 U/L (0-32) H 03/03/25 05:24 ALT 16 U/L (0-33) 03/03/25 05:24 Alkaline Phosphatase 100 U/L (35-105) 03/03/25 05:24 Ammonia 28 umol/L (11-51) 03/01/25 20:19 Total Protein 5.5 g/dL (6.6-8.7) L 03/03/25 05:24 Albumin 3.1 g/dL (3.5-5.2) L 03/03/25 05:24 Globulin 2.4 g/dL (1.3-4.6) 03/03/25 05:24 Vitamin B12 385 pg/mL (232-1245) 03/01/25 20:19 TSH 0.46 uIU/mL (0.27-4.20) 03/01/25 20:19 Urine Color Yellow (Yellow) 03/02/25 03:45 Urine Appearance Clear (CLEAR) 03/02/25 03:45 Urine pH 5.5 (5-7) 03/02/25 03:45 Ur Specific [place] 1.054 (1.005-1.030) H 03/02/25 03:45 Urine Protein Negative (Negative) 03/02/25 03:45 Urine Glucose (UA) Negative (Normal) 03/02/25 03:45 Urine Ketones Negative (Negative) 03/02/25 03:45 Urine Blood Negative (Negative) 03/02/25 03:45 Urine Nitrate Negative (Negative) 03/02/25 03:45 Urine Bilirubin Negative (Negative) 03/02/25 03:45 Urine Urobilinogen 0.2 mg/dL (Negative) 03/02/25 03:45 Ur Leukocyte Esterase Negative (Negative) 03/02/25 03:45 Urine RBC 0-2 /hpf (0-2) 03/02/25 03:45 Urine WBC 0-5 /hpf (0-5) 03/02/25 03:45 Ur Squamous Epith Cells 0-5 /hpf (0-5) 03/02/25 03:45 Amorphous Sediment Not Reportable 03/02/25 03:45 Urine Bacteria None seen /hpf (NONE) 03/02/25 03:45 Hyaline Casts 2.05 /lpf 03/02/25 03:45 Vitals Last Vital Signs Temp 98.0 F 03/03/25 11:27 Pulse 88 03/03/25 11:27 Resp 18 03/03/25 11:27 BP 119/62 03/03/25 11:27 Pulse Ox 93 03/03/25 11:27 O2 Del Method Nasal Cannula 03/03/25 11:27 O2 Flow Rate 2 03/03/25 10:14 Discharge Plan Discharge Patient Disposition: Home Health Service Condition: Stable Prescriptions: New polysaccharide iron complex [Ferrex 150] 150 mg iron Capsule 150 mg PO BIDWM 90 Days Qty: 90 0RF Eliquis DVT-PE Treat 30D Start 5 mg (74 tabs) tablets,dose pack See Rx Instructions .ROUTE .COMPLEX Qty: 74 0RF Rx Instructions: orally per package directions Eliquis 5 mg tablet 5 mg PO BID 90 Days Qty: 180 0RF diclofenac sodium 75 mg Tablet,Delayed Release (Dr/Ec) 75 mg PO BID 30 Days Qty: 60 0RF Continued lorazepam 1 mg tablet 0.5 - 1 mg PO Q6H PRN (Reason: severe nausea) Qty: 30 3RF lidocaine-prilocaine 2.5-2.5 % cream 1 applic topical .COMPLEX Qty: 30 2RF Rx Instructions: Apply quarter-size amount to port site 30 minutes prior to access; cover with cling wrap [id number] 250 mg tablet 1 tab PO BID 15 Days Qty: 30 0RF bisoprolol fumarate 10 mg tablet 10 mg PO DAILY Qty: 90 1RF hydrochlorothiazide 25 mg tablet 25 mg PO DAILY Qty: 90 1RF atorvastatin 20 mg tablet 20 mg PO DAILY Rx Instructions: Take 1 tablet by mouth once daily amitriptyline 25 mg tablet 25 mg PO DAILY Rx Instructions: Take 1 tablet by mouth once daily docusate sodium [Colace] 100 mg capsule 100 mg PO BID Qty: 14 0RF ascorbic acid (vitamin C) [Vitamin C] 1,000 mg Tablet 1 g PO DAILY flaxseed oil 1,000 mg Capsule 1,000 mg PO DAILY Rx Instructions: administer with a meal vitamin B complex Tablet 0.5 tab PO DAILY magnesium 250 mg Tablet 250 mg PO DAILY polyethylene glycol 3350 [Miralax] 17 gram/dose Powder 4 g PO DAILY cholecalciferol (vitamin D3) [Vitamin D3] 125 mcg (5,000 unit) Tablet 125 mcg PO DAILY Retail Sales Representative OK for DC: Hospitalist Discharge Order = DC NOW: Discharge Order (Routine); Ordered 03/03/25 Ordered By: Rosalinda Wallis Other Ambulatory Orders: DME: Oxygen (Order) Location: None Selected Ordered By: Mary Ann Collins Referrals: [facility] ([facility]) [Outside] Angelina Cota FNP [Primary Care Provider, Family Practice] - 03/09/25 9:40 am Referral Note: Will need continued outpatient management of PE. Rosalinda Wallis MD [Physician, Orthopedics] - 03/13/25 1:45 pm Discharge Diet: Advance as tolerated and Usual diet Discharge Activity: Increase activity as tolerated, Use walker/crutches as instructed and As per PT/OT instructions Patient Instructions: Diclofenac (By mouth), Apixaban (By mouth), Acute Wound Care (DC), Total Knee Replacement (DC), Opioid Safety, Post Anesthesia Care, Patient Portal & Nguyễn Instructions Activity Restrictions/Additional Instructions: PT for range of motion, strengthening, and gait training following left total knee arthroplasty. You may shower, but do not soak your knee in water. If the dressing begins to leak, please remove it, otherwise, maintain it in position until you are seen in the clinic. Ice and elevation to left lower extremity. Per Hospitalist Team: Patient is stable to discharge, prescribed continued Eliquis starter pack 10mg po BID x days and then 5mg PO BID for management of PE-patient will need outpatient follow-up with primary care provider within 1 to 3 days of discharge for continued long-term anticoagulant management. Provided with home oxygen at discharge, continues supplementation at 2Lpm via n/c, continued outpatient management through PCP. Discharge Attestations Time Spent in Discharge Care*: greater than 30 min Specific Discharge Activities: educating patient, documenting/other paperwork and evaluating patient/reviewing data Quality Metrics Clinical Quality Measures [ Venous Thromboembolism { Contraindication to Overlap Therapy: None; Overlap threrpy ordered; VTE Discharge Education: Education about anticoagulant therapy/Care Notes given, Follow-up arranged;}] Coding Level of Care Code Acute Code for Chg Fwd Diagnoses Status post total left knee replacement not using cement Z96.652 AMS (altered mental status) R41.82 Acute blood loss as cause of postoperative anemia D62 Nausea & vomiting R11.2 Hypotension, unspecified I95.9 Diffuse large B-cell lymphoma C83.30
== END 2025-03-03 15:30 | disposition home health service (06) | DRG 470 ==
LOC: MEDSURG 10:21
PROVIDERS: Clinical Nurse Specialist Acute Care; Family Medicine; Registered Nurse; Admitting Provider Specialist; PCP Nurse Practitioner Family; Visit Provider Specialist
PROC: 8E0Y0CZ Robotic Assisted Procedure of Lower Extremity, Open Approach (ICD-10-PCS; CPT 27447; principal; 2025-02-28 07:00)
DX: M17.12 Unilateral primary osteoarthritis, left knee (principal); I26.93 Single subsegmental thrombotic pulmonary embolism without acute cor pulmonale; D62 Acute posthemorrhagic anemia; C83.30 Diffuse large B-cell lymphoma, unspecified site; I95.81 Postprocedural hypotension; I10 Essential (primary) hypertension; E78.5 Hyperlipidemia, unspecified; G47.00 Insomnia, unspecified; R41.82 Altered mental status, unspecified; Z79.01 Long term (current) use of anticoagulants; Z87.891 Personal history of nicotine dependence
CPT/HCPCS: 36415; 36592; 36600; 51702; 51798; 70450; 71275; 73560; 80053; 81001; 82140; 82607; 82728; 82803; 83540; 83550; 83735; 84100; 84443; 85025; 85049; 85730; 93005; 94760; 97110; 97116; 97162; 97166; 97530; 99214; A4216; A4649; C1776; G0378; J0131; J0666; J0690; J0780; J1642; J1644; J1885; J2405; J2704; J3373; J3490; J7030; J7120; J9999

== ENCOUNTER → 2025-03-13 13:25 | Outpatient (BNVA) | payer MEDICARE, OTHER, SELFPAY | PROVIDERS: PCP Nurse Practitioner Family; Visit Provider Nurse Practitioner | DX: Z98.890 Other specified postprocedural states (principal); Z96.652 Presence of left artificial knee joint | CPT/HCPCS: 99024 ==

== ENCOUNTER 2025-03-28 10:54 | Oncology outpatient (recurring) (ONCR) | payer MEDICARE, OTHER, SELFPAY | END 2025-03-29 23:59 | disposition home or self-care (01) | PROVIDERS: PCP Nurse Practitioner Family; Visit Provider Internal Medicine Medical Oncology | DX: Z45.2 Encounter for adjustment and management of vascular access device (principal); Z95.828 Presence of other vascular implants and grafts | CPT/HCPCS: 96523 ==